=== PATIENT | male | born 1955 | race Caucasian/White ===

== ENCOUNTER 2022-08-10 09:45 | Emergency (ER) | payer MEDICARE, SELFPAY ==
[2022-08-10] VITALS (26 sets, daily range): BP systolic 103–141; BP diastolic 77–93; PULSE 51–64; RESP 16; TEMP 35.9; O2SAT 92–100; BMI 28.5
--- NOTE | 2022-08-10 10:37 | ED_ITS ---
HPI - General Adult General Time Seen by Provider: 10:38 Date Seen: 08/10/22 Chief complaint: Anxiety Stated complaint: Chest discomfort Time Seen by Provider: 08/10/22 10:35 Source: patient and RN notes reviewed Mode of arrival: ambulatory Limitations: no limitations History of Present Illness HPI narrative: This 66-year-old gentleman is coming in with concern of chest heaviness that has been intermittent but recurrent over the last few days. He was up eating breakfast this morning, it was coming across his whole anterior chest intermittently for about an hour. This was about an hour prior to his arrival. He notes he did go to the and did do about an hour on a bicycle without any symptoms. He feels like it may come on with more stressed. He had a stressful phone conversation last night. He woke up this morning just generally did not feel well. He has maybe had a bit more indigestion at times but not noting any reflux symptoms. No nausea or vomiting. He has had no fevers or chills, no associated cough or cold symptoms. He has never been diagnosed with any heart issues. He feels that he has had similar symptoms before and went to [facility] and in Urgent Care once. They told him his symptoms were anxiety. He has brothers who had heart arrhythmia issues. It does not sound like any one has had any coronary artery disease that he is aware of. He is a nonsmoker, no alcohol use, no illicit drug use. He states he has bipolar disorder and is on psychotropic medication for this. Related Data Home Medications Medication Instructions Recorded Confirmed lamotrigine 100 mg tablet mg 08/10/22 levothyroxine 175 mcg tablet mcg 08/10/22 quetiapine 400 mg tablet mg 08/10/22 quetiapine 50 mg tablet mg 08/10/22 Allergies Allergy/AdvReac Type Severity Reaction Status Date / Time No Known Drug Allergies Allergy Verified 08/10/22 09:59 Review of Systems Status of ROS: Reports: 10 or more systems reviewed and unremarkable except as noted in History and below PFSH PFS Social History Smoking Status: Never smoker How often do you have a drink containing alcohol: never How often do you have six or more drinks on one occasion: Never AUDIT-C Alcohol total score: 0 Non-prescribed substance use: denies use Exam Const: Vital Signs, click to edit/add: Vital Signs - 24 hr 08/10/22 09:55 08/10/22 10:50 08/10/22 09:58 Temperature 96.6 F L Pulse Rate 60 Pulse Rate [Left P ulse Oximeter] 62 Respiratory Rate 16 Blood Pressure Blood Pressure [Le ft Upper Arm] 141/90 H Pulse Oximetry 100 99 99 Oxygen Delivery Me thod Room Air 08/10/22 09:59 08/10/22 10:00 08/10/22 10:01 Temperature Pulse Rate 59 L 56 L 60 Pulse Rate [Left P ulse Oximeter] Respiratory Rate Blood Pressure 141/90 H 134/93 H Blood Pressure [Le ft Upper Arm] Pulse Oximetry 100 99 99 Oxygen Delivery Me thod 08/10/22 10:30 08/10/22 10:31 08/10/22 11:00 Temperature Pulse Rate 61 58 L 56 L Pulse Rate [Left P ulse Oximeter] Respiratory Rate Blood Pressure 127/87 Blood Pressure [Le ft Upper Arm] Pulse Oximetry 96 96 98 Oxygen Delivery Me thod 08/10/22 11:02 08/10/22 11:03 08/10/22 11:30 Temperature Pulse Rate 63 63 58 L Pulse Rate [Left P ulse Oximeter] Respiratory Rate Blood Pressure 103/77 Blood Pressure [Le ft Upper Arm] Pulse Oximetry 97 96 97 Oxygen Delivery Me thod 08/10/22 11:32 08/10/22 11:33 08/10/22 12:00 Temperature Pulse Rate 52 L 59 L 51 L Pulse Rate [Left P ulse Oximeter] Respiratory Rate Blood Pressure 127/79 Blood Pressure [Le ft Upper Arm] Pulse Oximetry 97 96 98 Oxygen Delivery Me thod 08/10/22 12:01 08/10/22 12:02 08/10/22 12:30 Temperature Pulse Rate 54 L 56 L 54 L Pulse Rate [Left P ulse Oximeter] Respiratory Rate Blood Pressure 125/78 Blood Pressure [Le ft Upper Arm] Pulse Oximetry 96 97 98 Oxygen Delivery Me thod 08/10/22 12:32 08/10/22 13:02 08/10/22 13:17 Temperature Pulse Rate 55 L 56 L Pulse Rate [Left P ulse Oximeter] Respiratory Rate Blood Pressure 123/82 128/86 Blood Pressure [Le ft Upper Arm] Pulse Oximetry 96 94 Oxygen Delivery Me thod 08/10/22 13:30 08/10/22 13:31 Temperature Pulse Rate 60 64 Pulse Rate [Left P ulse Oximeter] Respiratory Rate Blood Pressure 141/82 H Blood Pressure [Le ft Upper Arm] Pulse Oximetry 99 92 Oxygen Delivery Me thod Documenting provider has reviewed patient's vital signs: yes Common normals: no apparent distress, average body habitus, oriented x3, no limitations, healthy appearing and alert General appearance: cooperative, comfortable, well kempt and well developed HENMT: Common normals: normocephalic, head/scalp atraumatic and hearing grossly normal bilaterally Head and scalp: normocephalic and atraumatic Eye: Common normals: PERRL, EOMs intact bilaterally, conjunctivae normal and no scleral icterus Conjunctiva: conjunctiva(e) normal Pupil: PERRL Neck & C-Spine: Common normals: full ROM, no lymphadenopathy, supple, no meningeal signs, no JVD and thyroid normal Thyroid: thyroid normal Chest: Common normals: inspection of chest normal and palpation of chest normal Resp: Common normals: normal respiratory effort, no retractions, no use of accessory muscles and clear to auscultation bilaterally Auscultation: clear to auscultation bilaterally Cardio: Common normals: no JVD, regular rate, regular rhythm, S1 normal heart sound, S2 normal heart sound, no gallops, no clicks and no murmurs Rate: regular rate Rhythm: regular rhythm Heart sounds: S1 normal and S2 normal GI: Common normals: Normal to inspection, nondistended, normoactive bowel sounds present, soft to palpation, non-tender, no hepatosplenomegaly and no masses Palpation: soft and no hepatosplenomegaly Extremity: Other: Ambulatory in the ED of his own accord, did watch him walk into room 8 when he was arriving here. No lower extremity edema, does not seem to have any calf tenderness. Neuro: Common normals: oriented x3 Sensorium/orientation: alert Meningeal signs: no meningeal signs Psych: Appearance: well kempt Course Course Hospital Course: His initial EKG on arrival is looking reassuring, he will be maintained on cardiac monitoring and pulse oximetry. We will do full complement of blood work, obtain portable chest x-ray. Does not sound like there is any concern for any infectious etiology at this time. Otherwise, arrhythmia, coronary artery disease, GI a symptomatology, possible thromboembolic disease will be considered. We will guide therapy accordingly. Reevaluation(s) Reevaluation #1: Patient is aware that he will be getting a repeat troponin around 1:00 p.m., if normal likely discharge to home. Time: 12:25 Reevaluation #2: 2nd troponin and EKG are normal. No change in the troponins at all. We will discharge patient for further outpatient follow-up. Time: 14:03 Vital Signs Vital signs: Initial Vital Signs Temperature 96.6 F L 08/10/22 09:55 Temperature Source Temporal Artery Scan 08/10/22 09:55 Pulse Rate 62 08/10/22 09:55 Pulse Rhythm 08/10/22 09:55 Respiratory Rate 16 08/10/22 09:55 Blood Pressure 141/90 H 08/10/22 09:55 Blood Pressure Mean 107 08/10/22 09:55 Blood Pressure Position Sitting 08/10/22 09:55 Pulse Oximetry 100 08/10/22 09:55 Oxygen Delivery Method 08/10/22 09:55 Vital Signs Temperature 96.6 F L 08/10/22 09:55 Pulse Rate 62 08/10/22 09:55 Respiratory Rate 16 08/10/22 09:55 Blood Pressure 141/90 H 08/10/22 09:55 Pulse Oximetry 100 08/10/22 09:55 Oxygen Delivery Method 08/10/22 09:55 Temperature 96.6 F L 08/10/22 09:55 Pulse Rate 64 08/10/22 13:31 Respiratory Rate 16 08/10/22 09:55 Blood Pressure 141/82 H 08/10/22 13:31 Pulse Oximetry 92 08/10/22 13:31 Oxygen Delivery Method 08/10/22 09:55 Medical Decision Making Lab Data Lab results reviewed: Yes I reviewed the patient's lab results Labs: Lab Results 08/10/22 08/10/22 08/10/22 Range/Units 10:51 11:00 11:00 WBC 3.71 L (4.50-11.00) K/uL RBC 5.15 (4.30-5.90) m/uL Hgb 16.0 (13.5-17.5) gm/dL Hct 47.8 (37.0-53.0) % MCV 93 (80-100) fL MCH 31 (26-34) pg MCHC 34 (32-36) gm/dL RDW Coeff of Raúl 12.3 (11.5-15.5) % Plt Count 176 (140-440) K/uL Neut % (Auto) 63.6 (42.0-72.0) % Lymph % (Auto) 26.1 (20-44) % Mason % (Auto) 7.3 (0.0-11.0) % Eos % (Auto) 2.2 (0.0-7.0) % Baso % (Auto) 0.5 (0.0-3.0) % Neut # (Auto) 2.40 (1.7-7.0) K/uL Lymph # (Auto) 1.00 (0.90-2.90) K/uL Mason # (Auto) 0.30 (0.00-0.90) K/UL Eos # (Auto) 0.10 (0.00-0.50) K/uL Baso # (Auto) 0.00 (0.00-0.30) K/uL D-Dimer Quant (PE/DVT) < 0.27 (0.00-0.50) ug/ml Sodium (135-149) mmol/L Potassium (3.6-5.1) mmol/L Chloride (96-114) mmol/L Carbon Dioxide (20-32) mmol/L BUN (7-30) mg/dL Creatinine (0.5-1.5) mg/dL Estimated Creat Clear Estimated GFR ml/min Glucose (60-115) mg/dL Calcium (8.4-10.6) mg/dL Total Bilirubin (0.1-1.5) mg/dL AST (12-35) U/L ALT (4-50) U/L Alkaline Phosphatase (40-150) U/L NT-Pro-B Natriuret Pep pg/mL Total Protein (6.0-8.3) g/dL Albumin (3.3-5.0) g/dL Lipase (23-300) U/L POC Troponin I 0.00 L (0.01-0.04) ng/ml 08/10/22 08/10/22 Range/Units 11:00 13:00 WBC (4.50-11.00) K/uL RBC (4.30-5.90) m/uL Hgb (13.5-17.5) gm/dL Hct (37.0-53.0) % MCV (80-100) fL MCH (26-34) pg MCHC (32-36) gm/dL RDW Coeff of Raúl (11.5-15.5) % Plt Count (140-440) K/uL Neut % (Auto) (42.0-72.0) % Lymph % (Auto) (20-44) % Mason % (Auto) (0.0-11.0) % Eos % (Auto) (0.0-7.0) % Baso % (Auto) (0.0-3.0) % Neut # (Auto) (1.7-7.0) K/uL Lymph # (Auto) (0.90-2.90) K/uL Mason # (Auto) (0.00-0.90) K/UL Eos # (Auto) (0.00-0.50) K/uL Baso # (Auto) (0.00-0.30) K/uL D-Dimer Quant (PE/DVT) (0.00-0.50) ug/ml Sodium 141 (135-149) mmol/L Potassium 4.3 (3.6-5.1) mmol/L Chloride 112 (96-114) mmol/L Carbon Dioxide 23 (20-32) mmol/L BUN 20 (7-30) mg/dL Creatinine 1.1 (0.5-1.5) mg/dL Estimated Creat Clear 83.25 Estimated GFR 74 ml/min Glucose 117 H (60-115) mg/dL Calcium 9.4 (8.4-10.6) mg/dL Total Bilirubin 0.7 (0.1-1.5) mg/dL AST 20 (12-35) U/L ALT 18 (4-50) U/L Alkaline Phosphatase 50 (40-150) U/L NT-Pro-B Natriuret Pep 21 pg/mL Total Protein 6.7 (6.0-8.3) g/dL Albumin 4.2 (3.3-5.0) g/dL Lipase 78 (23-300) U/L POC Troponin I 0.00 L (0.01-0.04) ng/ml Imaging Data Chest x-ray: Attestation: I have reviewed the pertinent imaging results. My impression: No acute cardiopulmonary pathology on my preliminary review. Radiologist's impression: Patient: JAIME HERNÁNDEZ Facility:?[facility] Patient ID:?[id number] Site Patient ID:?[id number]. Site :?[id number] Study:?XRay Chest PORTABLE-08/10/2022 11:19:04 AM Ordering Physician:?Elliott Nuñez Final Report: INDICATION: CHEST DISCOMFORT TECHNIQUE: Chest 1 view COMPARISON: 08/20/2014 FINDINGS: Cardiovascular and mediastinum: Cardiac silhouette is upper limits of normal. There is tortuosity of the aorta. Lungs and pleural spaces: Lungs are clear. No sign of infiltrate or mass. No sign of pleural effusion. No pneumothorax. Bones and soft tissues: No significant findings. IMPRESSION: No acute findings. Dictated by Prashant Lewis MD @ 08/10/2022 11:27:24 AM (Electronic Signature) ECG Data Attestation: I personally reviewed and interpreted this ECG as follows: (Sinus bradycardia, 58 beats per minute. No acute ischemic concerns. QT corrected 404 milliseconds.) Interpretation: Followup EKG timed 1305 shows sinus bradycardia 50 beats per minute. No ischemia. Critical Care Time Critical Care Time Critical Care Time: No Discharge Plan Discharge Clinical Impression: Chest tightness Patient Disposition: Home, Self-Care Condition: Stable Instructions: Chest Pain (ED), Noncardiac Chest Pain (ED) Additional Instructions: Recommend follow up in clinic as soon as possible, discuss with your primary care provider about having a cardiac stress test scheduled. Unless you have been told not to, would not be inappropriate to take an 81 mg aspirin daily until you have completed a stress test. In the meantime, if you have increasing chest symptoms, notice any heart irregularity in the rhythm or have other concerning symptoms, return to the ER for further evaluation. Activity Level: Activity as Tolerated Prescriptions: No Action levothyroxine 175 mcg tablet lamotrigine 100 mg tablet quetiapine 50 mg tablet quetiapine 400 mg tablet Stand Alone Forms: [employer] Info Instructions
--- NOTE | 2022-08-10 10:50 | CRLHL7_ITS ---
For Patients: As a result of the Cures Act, medical imaging exams and procedure reports are released immediately into your electronic medical record. You may view this report before your referring provider. If you have questions, please contact your health care provider. INDICATION: CHEST DISCOMFORT TECHNIQUE: Chest 1 view COMPARISON: 08/20/2014 FINDINGS: Cardiovascular and mediastinum: Cardiac silhouette is upper limits of normal. There is tortuosity of the aorta. Lungs and pleural spaces: Lungs are clear. No sign of infiltrate or mass. No sign of pleural effusion. No pneumothorax. Bones and soft tissues: No significant findings. IMPRESSION: No acute findings. Dictated by Prashant Lewis MD @ 08/10/2022 11:27:24 AM (Electronically Signed)
[2022-08-10 11:12] LABS: Basophils Percent Auto 0.5 % (0.0-3.0); Eosinophils Percent Auto 2.2 % (0.0-7.0); Hematocrit 47.8 % (37.0-53.0); Immature Granulocytes Pct Auto 0.3 %; Lymphocytes Percent Auto 26.1 % (20-44); Mean Corpuscular HGB Conc 34 gm/dL (32-36); Mean Corpuscular Hemoglobin 31 pg (26-34); Mean Corpuscular Volume 93 fL (80-100); Monocytes Percent Auto 7.3 % (0.0-11.0); Neutrophils Percent Auto 63.6 % (42.0-72.0); Platelet Count* 176 K/uL (140-440); RDW Coefficient of Variation % 12.3 % (11.5-15.5); Red Blood Count 5.15 m/uL (4.30-5.90); White Blood Count* 3.71 K/uL (4.50-11.00)
[2022-08-10 11:24] LABS: Albumin* 4.2 g/dL (3.3-5.0); Chloride* 112 mmol/L (96-114); Sodium* 141 mmol/L (135-149)
[2022-08-10 11:25] LABS: Potassium* 4.3 mmol/L (3.6-5.1); Slide Review Reflex No
[2022-08-10 11:27] LABS: Alkaline Phosphatase* 50 U/L (40-150); Aspartate Amino Transferase* 20 U/L (12-35); Bilirubin Total* 0.7 mg/dL (0.1-1.5); Blood Urea Nitrogen* 20 mg/dL (7-30); Carbon Dioxide* 23 mmol/L (20-32); Creatinine* 1.1 mg/dL (0.5-1.5); Est. Creatinine Clearance* 83.25; Estimated Glomerular Filt Rate 74 ml/min; Lipase* 78 U/L (23-300); Total Protein* 6.7 g/dL (6.0-8.3)
[2022-08-10 11:28] LABS: Alanine Aminotransferase* 18 U/L (4-50); Calcium* 9.4 mg/dL (8.4-10.6); Glucose* 117 mg/dL (60-115)
[2022-08-10 11:33] LABS: D Dimer Quantitative* < 0.27 ug/ml (0.00-0.50)
[2022-08-10 11:40] LABS: NT Pro B Type NatriureticPept* 21 pg/mL
== END 2022-08-10 14:15 | disposition home or self-care (01) ==
PROVIDERS: Emergency Provider Family Medicine; PCP Family Medicine
DX: R07.89 Other chest pain (principal)
CPT/HCPCS: 36415; 71045; 80053; 83690; 83880; 84484; 85025; 85379; 93005; 94761; 99285

== ENCOUNTER 2023-10-29 22:09 | Emergency (ER) | payer MEDICARE, SELFPAY ==
[2023-10-29 22:14] VITALS: BP 164/88; PULSE 62; RESP 18; TEMP 36.1; O2SAT 100; BMI 29.1
--- NOTE | 2023-10-29 22:22 | ED.GENADULT ---
HPI - General Adult General Date Seen: 10/29/23 Chief complaint: Ear/Nose/Throat Problem Stated complaint: rubber end of hearing aid stuck in R ear Time Seen by Provider: 10/29/23 22:17 Source: patient Mode of arrival: ambulatory Limitations: no limitations History of Present Illness HPI narrative: Patient is a 68-year-old male who wears hearing aids, he has the rubber gasket of his right hearing aid stuck in his right ear. No other complaints. Related Data Home Medications Medication Instructions Recorded Confirmed lamotrigine 100 mg tablet mg 08/10/22 levothyroxine 175 mcg tablet mcg 08/10/22 quetiapine 400 mg tablet mg 08/10/22 quetiapine 50 mg tablet mg 08/10/22 Allergies Allergy/AdvReac Type Severity Reaction Status Date / Time No Known Drug Allergies Allergy Verified 08/10/22 09:59 PFSH PFSH Social History Smoking Status: Never smoker How often do you have a drink containing alcohol: never How often do you have six or more drinks on one occasion: Never AUDIT-C Alcohol total score: 0 Non-prescribed substance use: denies use Exam Narrative: Exam Narrative: Foreign body right ear canal Const: Vital Signs, click to edit/add: Vital Signs - 24 hr 10/29/23 22:14 Temperature 97.0 F L Pulse Rate [Left P ulse Oximeter] 62 Respiratory Rate 18 Blood Pressure [Ri ght Upper Arm] 164/88 H Pulse Oximetry 100 Oxygen Delivery Me thod Room Air Course Course ED Course: Rubber foreign body was removed from the right external auditory canal using alligators. Exam after removal shows a clear canal, normal TM. Vital Signs Vital signs: Initial Vital Signs Temperature 97.0 F L 10/29/23 22:14 Temperature Source Temporal Artery Scan 10/29/23 22:14 Pulse Rate 62 10/29/23 22:14 Pulse Rhythm Regular 10/29/23 22:14 Respiratory Rate 18 10/29/23 22:14 Blood Pressure 164/88 H 10/29/23 22:14 Blood Pressure Mean 113 H 10/29/23 22:14 Blood Pressure Position Sitting 10/29/23 22:14 Pulse Oximetry 100 10/29/23 22:14 Oxygen Delivery Method Room Air 10/29/23 22:14 Vital Signs Temperature 97.0 F L 10/29/23 22:14 Pulse Rate 62 10/29/23 22:14 Respiratory Rate 18 10/29/23 22:14 Blood Pressure 164/88 H 10/29/23 22:14 Pulse Oximetry 100 10/29/23 22:14 Oxygen Delivery Method Room Air 10/29/23 22:14 Temperature 97.0 F L 10/29/23 22:14 Pulse Rate 62 10/29/23 22:14 Respiratory Rate 18 10/29/23 22:14 Blood Pressure 164/88 H 10/29/23 22:14 Pulse Oximetry 100 10/29/23 22:14 Oxygen Delivery Method Room Air 10/29/23 22:14 Discharge Plan Discharge Clinical Impression: Acute foreign body of right ear canal Patient Disposition: Home, Self-Care Condition: Improved Instructions: Ear Foreign Body (ED) Prescriptions: No Action levothyroxine 175 mcg tablet lamotrigine 100 mg tablet quetiapine 50 mg tablet quetiapine 400 mg tablet Follow Up/Referrals: Jeffrey Jeronimo MD [Primary Care Provider] - Stand Alone [facility] Info Inst[facility]
== END 2023-10-29 22:28 | disposition home or self-care (01) ==
LOC: ED 22:27
PROVIDERS: Emergency Provider Emergency Medicine; PCP Family Medicine
DX: T16.1XXA Foreign body in right ear, initial encounter (principal)
CPT/HCPCS: 99282; 99283

== ENCOUNTER 2023-10-31 18:48 | Emergency (ER) | payer MEDICARE, SELFPAY ==
--- NOTE | 2023-10-31 18:52 | ED.GENADULT ---
HPI - General Adult General Date Seen: 10/31/23 Chief complaint: Ear/Nose/Throat Problem Stated complaint: Rubber piece of hearing aid stuck in L ear Time Seen by Provider: 10/31/23 18:50 History of Present Illness HPI narrative: Very pleasant 68-year-old gentleman presenting to the ER today because he has the rubbery ear canal piece from his hearing aid lodged in his left ear canal. It came off 2 days ago and he had to come to the ER to get it removed. He came off again today. The ear piece stuck in his ear canal. No pain. No other complaints. No trouble with his right ear. Related Data Home Medications Medication Instructions Recorded Confirmed lamotrigine 100 mg tablet mg 08/10/22 levothyroxine 175 mcg tablet mcg 08/10/22 quetiapine 400 mg tablet mg 08/10/22 quetiapine 50 mg tablet mg 08/10/22 Allergies Allergy/AdvReac Type Severity Reaction Status Date / Time No Known Drug Allergies Allergy Verified 08/10/22 09:59 PFSH PFSH Social History Smoking Status: Never smoker How often do you have a drink containing alcohol: never How often do you have six or more drinks on one occasion: Never AUDIT-C Alcohol total score: 0 Non-prescribed substance use: denies use Exam Narrative: Exam Narrative: Constitutional: Appears well-developed and well-nourished. Alert. Conversant. Non toxic. HENT: Head: Atraumatic. Right ear: Pinna, mastoid, canal, TM is normal. Small amount of cerumen in the canal. Left ear: Pinna, mastoid, auricle are normal. There is a black rubber foreign body-the ear piece from his hearing aid in the canal. I removed his gently using alligator forceps. The remainder of his canal and his TM are normal. No other foreign bodies. Neurological: Alert and oriented to person, place, and time. Normal strength. CN II-VII intact. No sensory deficit. GCS eye subscore is 4. GCS verbal subscore is 5. GCS motor subscore is 6. Normal coordination Skin: Skin is warm and dry. No rash noted. No pallor. Psychiatric: Normal mood. Normal affect. Const: Vital Signs, click to edit/add: Vital Signs - 24 hr 10/31/23 18:54 Temperature 97.1 F L Pulse Rate [Pulse Oximeter] 62 Respiratory Rate 18 Blood Pressure [Le ft Upper Arm] 159/100 H Pulse Oximetry 96 Oxygen Delivery Me thod Room Air Course Vital Signs Vital signs: Initial Vital Signs Temperature 97.1 F L 10/31/23 18:54 Temperature Source Temporal Artery Scan 10/31/23 18:54 Pulse Rate 62 10/31/23 18:54 Pulse Rhythm Regular 10/31/23 18:54 Respiratory Rate 18 10/31/23 18:54 Blood Pressure 159/100 H 10/31/23 18:54 Blood Pressure Mean 119 H 10/31/23 18:54 Blood Pressure Position Sitting 10/31/23 18:54 Pulse Oximetry 96 10/31/23 18:54 Oxygen Delivery Method Room Air 10/31/23 18:54 Vital Signs Temperature 97.1 F L 10/31/23 18:54 Pulse Rate 62 10/31/23 18:54 Respiratory Rate 18 10/31/23 18:54 Blood Pressure 159/100 H 10/31/23 18:54 Pulse Oximetry 96 10/31/23 18:54 Oxygen Delivery Method Room Air 10/31/23 18:54 Temperature 97.1 F L 10/31/23 18:54 Pulse Rate 62 10/31/23 18:54 Respiratory Rate 18 10/31/23 18:54 Blood Pressure 159/100 H 10/31/23 18:54 Pulse Oximetry 96 10/31/23 18:54 Oxygen Delivery Method Room Air 10/31/23 18:54 Medical Decision Making MDM Narrative Medical decision making narrative: Very pleasant 68-year-old gentleman who wears hearing aids returns to the ER today because he has the rubber piece from his left hearing aid stuff in his left ear canal again. He was gently removed using alligator forceps. No evidence for any other foreign bodies. No signs of TM perforation. No signs of otitis externa or other infection. Safe for discharge. He will follow-up with his machinist/machine builder to have his hearing aids refit. He is comfortable with plan for discharge. Discharge Plan Discharge Clinical Impression: Acute foreign body of left ear canal Patient Disposition: Home, Self-Care Condition: Stable Instructions: Ear Foreign Body (ED) Additional Instructions: Please follow-up with your machinist/machine builder as soon as possible to re-evaluate her hearing aids and have them refit If you have any concerns such as pain, drainage or bleeding from her ear, fever, change in hearing, please see your doctor or come back to the ER right away Prescriptions: No Action levothyroxine 175 mcg tablet lamotrigine 100 mg tablet quetiapine 50 mg tablet quetiapine 400 mg tablet Follow Up/Referrals: Jeffrey Jeronimo MD [Primary Care Provider] - Stand Alone Forms: [employer] Info Instructions
[2023-10-31 18:54] VITALS: BP 159/100; PULSE 62; RESP 18; TEMP 36.2; O2SAT 96; BMI 29.3
== END 2023-10-31 19:07 | disposition home or self-care (01) ==
LOC: ED 19:06
PROVIDERS: Emergency Provider Emergency Medicine; PCP Family Medicine
DX: T16.2XXA Foreign body in left ear, initial encounter (principal)
CPT/HCPCS: 69200; 99281; 99282

== ENCOUNTER 2024-09-25 14:53 | Emergency (ER) | payer MEDICARE, SELFPAY ==
--- OUTSIDE RECORDS SUMMARY | 2024-09-25 14:55 | XMS_ITS | Clinical Summary ---
Author Organization [facility] Address [address] [place] [address] Care Team Providers Care Platform Beater Name Role Phone Jeffrey Jeronimo Primary Care Provider [phone] Allergies No known active allergies Medications * This document contains information received from the source organization and may not represent a complete record from that organization. levothyroxine (SYNTHROID/LEVOTHR OID) 175 MCG tabletIndications: Other specified hypothyroidism Take 1 tablet (175 mcg) by mouth daily. 30 tablet 4 Active tacrolimus (PROTOPIC) 0.03 % external ointmentIndication s:Pressure injury of skin of buttock, unspecified injury stage, unspecified laterality Apply topically daily as needed (daily as needed on the affected area on the buttocks and groin). 60 g 4 Active triamcinolone (KENALOG) 0.1 % external creamIndications:P ressure injury of skin of buttock, unspecified injury stage, unspecified laterality Apply topically 2 times daily as needed for irritation. 30 g 4 Active buPROPion (WELLBUTRIN XL) 150 MG 24 hr tabletIndications: Bipolar 2 disorder, major depressive episode (H) Take 1 tablet (150 mg) by mouth daily. 30 tablet 4 Active cholecalciferol (VITAMIN D3) 125 mcg (5000 units) capsuleIndications :Vitamin D deficiency Take 1 capsule (125 mcg) by mouth daily. 30 capsule 4 Active melatonin 5 MG tabletIndications: Bipolar 2 disorder, major depressive episode (H) Take 1 tablet (5 mg) by mouth at bedtime. 30 tablet 4 Active pantoprazole (PROTONIX) 40 MG EC tabletIndications: Gastroesophageal reflux disease without esophagitis Take 1 tablet (40 mg) by mouth daily. 30 tablet 4 Active polyethylene glycol (MIRALAX) 17 GM/Dose powderIndications: Bipolar 2 disorder, major depressive episode (H) Take 17 g by mouth daily. 510 g 4 Active tamsulosin (FLOMAX) 0.4 MG capsuleIndications :Benign prostatic hyperplasia, unspecified whether lower urinary tract symptoms present Take 2 capsules (0.8 mg) by mouth daily. 60 capsule 4 Active QUEtiapine (SEROQUEL) 400 MG tabletIndications: Bipolar 2 disorder, major depressive episode (H) Take 1 tablet (400 mg) by mouth at bedtime. 30 tablet 4 Active Active Problems Problem Noted Date Diagnosed Date Bipolar 2 disorder, major depressive episode MDD (major depressive disorder) 04/21/2024 Bipolar I disorder, current or most recent episode depressed, with psychotic features 04/10/2024 BPH (benign prostatic hyperplasia) 04/10/2024 Urinary tract infection 04/10/2024 Hypothyroidism 04/10/2024 Gastroesophageal reflux disease without esophagi tis 04/10/2024 Sepsis due to urinary tract infection 04/10/2024 Stage 3a chronic kidney disease 04/10/2024 UTI (urinary tract infection) 04/10/2024 HECTOR (acute kidney injury) 04/10/2024 Insomnia due to other mental disorder (CODE) Severe depressed bipolar I d isorder without psychotic features 03/22/2024 Suicidal ideation 03/20/2024 Mood changes 03/20/2024 Bipolar disorder current episode depressed 03/19 Bipolar affective disorder, currently depressed, moderate 03/19/2024 Social History Tobacco Use Types Packs/Day Years Used Date Smoking Tobacco: Never Assessed PHQ-2 Answer Date Recorded PHQ-2 Score 2 03/20/2024 Adolescent Education Answer Date Record ed Getting School Help Needed Not on file 04/23 Food Insecurity Answer Date Recorded Within the past 12 months, d id you worry that your food would run out before you got money to buy more? No 05/05/2024 Within the past 12 months, d id the food you bought just not last and you didn t have money to get more? No 05/05/2024 Housing Stability Answer Date Recorded Do you have housing? (Emily benitez is defined as stable permanent housing and does not include staying ouside in a car, in a tent, in an abandoned building, in an overnight chcf, or couch-surfing.) Yes 05/05/2024 Are you worried about losing your housing? No 05/05/2024 Financial Resource Strain Answer Date R ecorded Within the past 12 months, h ave you or your family members you live with been unable to get utilities (heat, electricity) when it was really needed? No 05/05/2024 Transportation Needs Answer Date Record ed Within the past 12 months, h as lack of transportation kept you from medical appointments, getting your medicines, non-medical meetings or appointments, work, or from getting things that you need? No 05/05/2024 Interpersonal Safety Answer Date Record ed Do you feel physically and e motionally safe where you currently live? No 04/21/2024 Within the past 12 months, h ave you been hit, slapped, kicked or otherwise physically hurt by someone? No 04/21/2024 Within the past 12 months, h ave you been humiliated or emotionally abused in other ways by your partner or ex-partner? No 04/21/2024 Sex and Gender Information Value Date Recorded Sex Assigned at Not on file Legal Sex Male 4:11 PM CDT Gender Identity Not on file Sexual Orientation Not on file Last Filed Vital Signs Vital Sign Reading Time Taken Comments Blood Pressure 112/74 05/15/2024 8:45 AM CDT Pulse 121 05/15/2024 8:45 AM CDT Temperature 36.4 C (97.5 F) 05/15/2024 8:45 AM CDT Respiratory Rate 20 05/12/2024 11:3 3 AM CDT Oxygen Saturation 99% 05/15/2024 8:45 AM CDT Inhaled Oxygen Concentration - - Weight 102.4 kg (225 lb 12.8 oz) 05/15/2024 8:45 AM CDT Height 195.6 cm (6' 5) 03/20/2024 6:46 PM CDT Body Mass Index 26.78 03/20/2024 6:46 PM CDT Plan of Treatment Health Maintenance Due Date Last Done Comments ADVANCE CARE PLANNING 1955 ANNUAL REVIEW OF HM ORDERS 1955 CT COLONOGRAPHY 1955 FLEX SIG 1955 MICROALBUMIN 1955 sDNA (Cologuard) 1955 HEPATITIS C SCREENING 10/12/1973 DTAP/TDAP/TD IMMUNIZATION (1 - Tdap) 10/12/1980 Pneumococcal Vaccine: 50+ Years (1 of 1 - PCV) 10/12/2005 ZOSTER IMMUNIZATION (1 of 2) 10/12/2005 FIT 08/25/2017 08/25/2016 FALL RISK ASSESSMENT 10/12/2020 MEDICARE ANNUAL WELLNESS VISIT 10/12/2020 COVID-19 Vaccine ( season) 2024 11/28/2021, 05/10/2021, 11/08/2020, Additional history exists INFLUENZA VACCINE (#1) 2024 , 04/29/2022, 06/05/2021, Additional history exists TSH W/FREE T4 REFLEX 03/19/2025 03/19/2024 LIPID 04/22/2025 04/22/2024 HEMOGLOBIN 05/07/2025 05/07/2024, 04/01, 04/11/2024, Additional history exists BMP 05/09/2025 05/09/2024, 01/2024, 04/17/2024, Additional history exists COLONOSCOPY 2026 2016 COLORECTAL CANCER SCREENING 2026 GLUCOSE 05/09/2027 05/09/2024, 100 01/2024, 04/17/2024, Additional history exists RSV VACCINE (1 - 1-dose 75+ series) 10/12/2030 URINALYSIS Completed 05/07/2024, 04/01, 03/21/2024, Additional history exists HPV IMMUNIZATION Aged Out No longer e ligible based on patient's age to complete this topic MENINGITIS IMMUNIZATION Aged Out No l onger eligible based on patient's age to complete this topic Procedures Procedure Name Priority Date/Time Associated Diagnosis Comments BASIC METABOLIC PANEL Routine 05/09/2024 7:44 AM CDT ROUTINE UA WITH MICROSCOPIC REFLEX TO CULTURE Routine 05/07/2024 9:52 PM CDT CBC WITH PLATELETS AND DIFFERENTIAL Routine 05/07/2024 11:25 AM CDT LIPID PROFILE Routine 04/22/2024 7:57 AM CDT TSH WITH FREE T4 REFLEX STAT 03/19/2024 8:12 PM CDT from Last 3 Months or Most Recently Relevant to Health Maintenance Results * (ABNORMAL) Basic metabolic panel (05/09/2024 7:44 AM CDT) Sodium 141 135 - 145 mmol/L 05/09/2024 9:26 AM CDT [facility] Potassium 4.2 3.4 - 5.3 mmol/L 05/09/2024 9:26 AM CDT [facility] Chloride 111(H) 98 - 107 mmol/L 05/09/2024 9:26 AM CDT [facility] Carbon Dioxide (CO2) 19(L) 22 - 29 mmol/L 05/09/2024 9:26 AM CDT [facility] Anion Gap 11 7 - 15 mmol/L 05/09/2024 9:26 AM CDT [facility] Urea Nitrogen 21.5 8.0 - 23.0 mg/dL 05/09/2024 9:26 AM CDT [facility] Creatinine 1.19(H) 0.67 - 1.17 mg/dL 05/09/2024 9:26 AM CDT [facility] GFR Estimate 67 >60 mL/min/1.7 3m2 05/09/2024 9:26 AM CDT [facility] Comment:eGFR calculated us2020 CKD-EPI equation. Calcium 9.3 8.8 - 10.4 mg/dL 05/09/2024 9:26 AM CDT [facility] Comment:Reference intervals for this test were updated on 02/14/2024 to reflect our healthy population more accurately. There may be differences in the flagging of prior results with similar values performed with this method. Those prior results can be interpreted in the context of the updated reference intervals. Glucose 84 70 - 99 mg/dL 05/09/2024 9:26 AM CDT [facility] Blood BLOOD SPECIMEN / Unknown Venipuncture / Unknown 05/09/2024 7:44 AM CDT 05/09/2024 8:48 AM CDT us Jolie Butler MD LAB - BLOOD ORDERABLES Final Res ult [facility] [address] [place] [address] * (ABNORMAL) UA with Microscopic reflex to Culture (05/07/2024 9:52 PM CDT) Color Urine Light Yellow Colorless, Straw, Light Yellow, Yellow 05/07/2024 10:30 PM CDT [facility] Appearance Urine Clear Clear 05/07/20 10:30 PM CDT [facility] Glucose Urine Negative Negative mg/dL 05/07/2024 10:30 PM CDT [facility] Bilirubin Urine Negative Negative 10:30 PM CDT [facility] Ketones Urine Negative Negative mg/dL 05/07/2024 10:30 PM CDT [facility] Specific Hedrick Urine 1.013 1.003 - 1.035 05/07/2024 10:30 PM CDT [facility] Blood Urine Small(A) Negative 05/07/2024 10:30 PM CDT [facility] pH Urine 6.0 5.0 - 7.0 05/07/2024 10:30 PM CDT [facility] Protein Albumin Urine Negative Negative mg/dL 05/07/2024 10:30 PM CDT [facility] Urobilinogen Urine Normal Normal, 2.0 mg/dL 05/07/2024 10:30 PM CDT [facility] Nitrite Urine Negative Negative 05/07/2024 10:30 PM CDT [facility] Leukocyte Esterase Urine Negative Negative 05/07/2024 10:30 PM CDT [facility] Bacteria Urine Few(A) None Seen /HPF 05/07/2024 10:30 PM CDT [facility] Mucus Urine Present(A) None Seen /LPF 05/07/2024 10:30 PM CDT [facility] RBC Urine 11(H) <=2 /HPF 05/07/2024 10:30 PM CDT [facility] WBC Urine 2 <=5 /HPF 05/07/2024 10:30 PM CDT [facility] Urine URINE SPECIMEN FROM URINARY CONDUIT / Unknown Non-blood Collection / Unknown 05/07/2024 9:52 PM CDT 05/07/2024 10:02 PM CDT Narrative [facility] - 05/07/2024 10:30 PM CDT Urine Culture not indicated us Jolie Butler MD LAB - URINE ORDERABLES Final Res ult [facility] [address] [place] [address] * CBC with platelets and differential (05/07/2024 11:25 AM CDT) WBC Count 6.4 4.0 - 11.0 10e3/uL 05/07/2024 11:49 AM CDT [facility] RBC Count 4.68 4.40 - 5.90 10e6/uL 05/07/2024 11:49 AM CDT [facility] Hemoglobin 14.5 13.3 - 17.7 g/dL 05/07/2024 11:49 AM CDT [facility] Hematocrit 42.6 40.0 - 53.0 % 05/07/2024 11:49 AM CDT [facility] MCV 91 78 - 100 fL 05/07/2024 11:49 AM CDT [facility] MCH 31.0 26.5 - 33.0 pg 05/07/2024 11:49 AM CDT [facility] MCHC 34.0 31.5 - 36.5 g/dL 05/07/2024 11:49 AM CDT [facility] RDW 12.7 10.0 - 15.0 % 05/07/2024 11:49 AM CDT [facility] Platelet Count 246 150 - 450 10e3/uL 05/07/2024 11:49 AM CDT [facility] % Neutrophils 67 % 05/07/2024 11:49 AM CDT [facility] % Lymphocytes 21 % 05/07/2024 11:49 AM CDT [facility] % Monocytes 9 % 05/07/2024 11:49 AM CDT [facility] % Eosinophils 3 % 05/07/2024 11:49 AM CDT [facility] % Basophils 1 % 05/07/2024 11:49 AM CDT [facility] % Immature Granulocytes 1 % 05/07/2024 11:49 AM CDT [facility] NRBCs per 100 WBC 0 <1 /100 024 11:49 AM CDT [facility] Absolute Neutrophils 4.3 1.6 - 8.3 10e3/uL 05/07/2024 11:49 AM CDT [facility] Absolute Lymphocytes 1.3 0.8 - 5.3 10e3/uL 05/07/2024 11:49 AM CDT [facility] Absolute Monocytes 0.6 0.0 - 1.3 10e3/uL 05/07/2024 11:49 AM CDT [facility] Absolute Eosinophils 0.2 0.0 - 0.7 10e3/uL 05/07/2024 11:49 AM CDT [facility] Absolute Basophils 0.0 0.0 - 0.2 10e3/uL 05/07/2024 11:49 AM CDT [facility] Absolute Immature Granulocytes 0.0 <=0.4 10e3/uL 05/07/2024 11:49 AM CDT [facility] Absolute NRBCs 0.0 10e3/uL 05/07/2024 11:49 AM CDT [facility] Blood BLOOD SPECIMEN / Unknown Venipuncture / Unknown 05/07/2024 11:25 AM CDT 05/07/2024 11:42 AM CDT us Jolie Butler MD LAB - BLOOD ORDERABLES Final Res ult [facility] [address] [place] [address], [facility] * (ABNORMAL) Lipid panel (04/22/2024 7:57 AM CDT) Cholesterol 132 <200 mg/dL 04/22/2024 8:40 AM CDT [facility] Triglycerides 91 <150 mg/dL 04/22/2024 8:40 AM CDT [facility] Direct Measure HDL 30(L) >=40 mg/dL 09/22/ 2024 8:40 AM CDT [facility] LDL Cholesterol Calculated 84 <100 mg/dL 04/22/2024 8:40 AM CDT [facility] Non HDL Cholesterol 102 <130 mg/dL 04/22/2024 8:40 AM CDT [facility] Blood BLOOD SPECIMEN / Unknown Venipuncture / Unknown 04/22/2024 7:57 AM CDT 04/22/2024 8:18 AM CDT Narrative [facility] - 04/22/2024 8:40 AM CDT Cholesterol Desirable: < 200 mg/dL Borderline High: 200 - 239 mg/dL High: >= 240 mg/dL Triglycerides Normal: < 150 mg/dL Borderline High: 150 - 199 mg/dL High: 200-499 mg/dL Very High: >= 500 mg/dL Direct Measure HDL Female: >= 50 mg/dL Male: >= 40 mg/dL LDL Cholesterol Desirable: < 100 mg/dL Above Desirable: 100 - 129 mg/dL Borderline High: 130 - 159 mg/dL High: 160 - 189 mg/dL Very High: >= 190 mg/dL Non HDL Cholesterol Desirable: < 130 mg/dL Above Desirable: 130 - 159 mg/dL Borderline High: 160 - 189 mg/dL High: 190 - 219 mg/dL Very High: >= 220 mg/dL us Jolie Butler MD LAB - BLOOD ORDERABLES Final Res ult UR LABORATORY [facility] [address] [place] [id number] * TSH with free T4 reflex (03/19/2024 8:12 PM CDT) TSH 1.18 0.30 - 4.20 uIU/mL 03/19/2024 8:51 PM CDT LABORATORY Blood STRUCTURE OF RIGHT UPPER LIMB / Unknown Venipuncture / Unknown 03/19/2024 8:12 PM CDT 03/19/2024 8:16 PM CDT us Faustina Middleton APRN [employer] LAB - BLOOD ORDERABLES Fi nal Result LABORATORY [facility] [address], [address] [place] [address], [place] [phone] from Last 3 Months or Most Recently Relevant to Health Maintenance Insurance [employer] MEDICARE ADVANTAGE [employer] MEDICARE ADVANTAGE [facility] MEDICARE REPLMT Advance Directives For more information, please contact: [phone] * Full Code (Latest Code Status on File) Date Activated Date Inactivated Comments 04/21/2024 11:09 AM 05/15/2024 4:41 PM All basic and advanced life-sustaining interventions are performed as appropriate while on inpatient psych Question Answer Comments Code status determined by: Other (please marielena valdez) * Full Code Date Activated Date Inactivated Comments 04/15/2024 7:01 AM 04/21/2024 10:55 AM All basic a nd advanced life-sustaining interventions are performed as appropriate Question Answer Comments Code status determined by: Discussion with patie nt/ legal decision maker * Full Code Date Activated Date Inactivated Comments 04/10/2024 10:55 PM 04/15/2024 7:01 AM All basic a nd advanced life-sustaining interventions are performed as appropriate Question Answer Comments Code status determined by: Unable to det ermine; FULL CODE until documents or legal decision maker available * Full Code Date Activated Date Inactivated Comments 04/10/2024 10:54 PM 04/10/2024 10:55 PM All basic and advanced life-sustaining interventions are performed as appropriate Question Answer Comments Code status determined by: Discussion with patie nt/ legal decision maker * Full Code Date Activated Date Inactivated Comments 03/23/2024 12:26 PM 04/10/2024 10:48 PM All basic and advanced life-sustaining interventions are performed as appropriate Question Answer Comments Code status determined by: Discussion with patie nt/ legal decision maker Care Teams Platform Beater Relationship Specialty Start Date End Date Votel, Jeffrey LE: [phone] [address] [place] [address] PCP - General Family Medicine 03/19/24
--- OUTSIDE RECORDS SUMMARY | 2024-09-25 14:55 | XMS_ITS | Encounter Summary ---
Author Organization [facility] Address [address] [place] [address]. [place] [address] Care Team Providers Care Distribution Lead Name Role Phone Phani Jeffrey El Primary Care Provider [phone] Reason for Visit * Reason Onset Date Comments MH/CD Inpatient 04/18/2024 Encounter Details Date Type Department Care Team ([facility] Contact Info) Description 04/18/2024 Telephone [facility] Behavioral Health Intake [address] [place] [id number] Generic, Behavioral Intake, MD MH/CD Inpatient Social History Tobacco Use Types Packs/Day Years Used Date Smoking Tobacco: Never Assessed PHQ-2 Answer Date Recorded PHQ-2 Score 2 03/20/2024 Adolescent Education Answer Date Record ed Getting School Help Needed Not on file 04/23 Food Insecurity Answer Date Recorded Within the past 12 months, d id you worry that your food would run out before you got money to buy more? No 04/13/2024 Within the past 12 months, d id the food you bought just not last and you didn t have money to get more? No 04/13/2024 Housing Stability Answer Date Recorded Do you have housing? (Housin g is defined as stable permanent housing and does not include staying ouside in a car, in a tent, in an abandoned building, in an overnight residential, or couch-surfing.) Yes 04/13/2024 Are you worried about losing your housing? Yes 04/13/2024 Financial Resource Strain Answer Date R ecorded Within the past 12 months, h ave you or your family members you live with been unable to get utilities (heat, electricity) when it was really needed? No 04/13/2024 Transportation Needs Answer Date Record ed Within the past 12 months, h as lack of transportation kept you from medical appointments, getting your medicines, non-medical meetings or appointments, work, or from getting things that you need? No 04/13/2024 Interpersonal Safety Answer Date Record ed Do [...] on file Sexual Orientation Not on file documented as of this encounter Miscellaneous Notes * Telephone Encounter - Candice Moe - 04/18/2024 7:42 PM CDT R: No appropriate bed at [facility]. Pt remains on the worklist. documented in this encounter Plan of Treatment Not on file documented as of this encounter Visit Diagnoses Not on filedocumented in this encounter Additional Health Concerns Assessment Noted Time PHQ-9 Depression Total Score: 17 03/28/ 024 1:40 PM CDT documented as of this encounter Care Teams Distribution Lead Relationship Specialty Start Date End Date NicteJeffrey iqbal [address] [place] [address] PCP - General Family Medicine 03/19/24 documented as of this encounter
[2024-09-25 15:06] VITALS: BP 112/67; PULSE 61; RESP 16; TEMP 36.7; O2SAT 97; BMI 28.2
--- NOTE | 2024-09-25 15:15 | ED.GENADULT ---
HPI - General Adult General Date Seen: 09/25/24 <Moo Ugarte MD - Last Filed: 09/26/24 19:24> Chief complaint: Psychiatric Problem/Disorder <Moo Ugarte MD - Last Filed: 09/26/24 19:24> Stated complaint: Mental Health Concerns <Moo Ugarte MD - Last Filed: 09/26/24 19:24> Time Seen by Provider: 09/25/24 15:10 <Moo Ugarte MD - Last Filed: 09/26/24 19:24> History of Present Illness HPI narrative: 68-year-old gentleman with a past medical history of bipolar disorder, depression, anxiety, sleep apnea, chronic kidney disease presents to the ER today, ago re-evaluate the glue, with concern for worsening depression, thoughts of suicide. He feels as though he needs inpatient mental health. He reports that he had been inpatient at [facility] for a couple of months last fall and that he needs to come back in. He reports that he gets some psych treatment through [facility], through the [facility] system. Most recent visit with her was a tele visit on 09/14, about 11 days ago. Last visit was 08/27/24 with a plan to continue off of the wellbutrin. ? Since then, Jamel report reports that he is feeling about the same. Symptoms of depression maybe a little worse, maybe sleeping and isolating a little more. Days are worse if he has more muscle cramping/ leg pain. Some days are better than others. Cramping/ leg pain s a little better- also feels that when his mental health is better the cramping is better. ? He is possibly a little more tired off of the wellbutrin- and so far, a little improvement of muscle cramping/ leg pain off of the wellbutrin. ? Still tough to get going in the mornings, though symptoms(mood) improves in the afternoon. ? Anxiety- has improved a little bit. Muscle cramping does get worse with social situations. ? May look into getting a new therapist again- was seeing someone new at [facility], saw him 3-4 times. Did not feel this was very helpful. Not sure talk therapy is the approach he wants to take. He is considering seeing someone new. ? He has been isolating a little more again; did do something for the [employer]. ? Sleep is good- getting about 6-8 hours/ night. Often going to bed a little later. Sometimes sleeping in more in the mornings (midnight-1AM until 10AM). This is a fairly typical sleep schedule for him. ? No longer feels the AM dose of quetiapine causes any fatugue as he usually doesn't take this until he gets up and gets going. ? He is feeling well-supported at home by family and friends. Sister and brother in law close by and supportive. Has dinner with them on Tuesday nights. ? Still has hand tremor - worse with the left hand, this does seem to be a little worse since hospitalization. ? Exercise: walking Appetite: improving ? Current Psych meds: ? Seroquel 100mg in the morning and 400mg at bedtime Melatonin 5mg at bedtime as needed for sleep Suicide risk:?identifies passive thoughts of - though denies any planning or intention to harm self at this time; pt is future oriented and feels he would reach out to family/ friends with worsening symptoms/ safety concerns and present to the ER for further evaluation if needed. Currently identifies family as a barrier to harming self. Clinical Summary: Jamel Meyers has a history and presentation consistent with?Bipolar Disorder that was first diagnosed in 1987 following a manic episode. He was hospitalized for depression in 2008 and experienced an exacerbation of symptoms (depression and suicidal ideaion) that resulted in lengthy inpatient mental health (depression and suicidal ideation) and medical hospitalization (urosepsis) at [facility] 03/19-2023. He completed 8 ECT treatments prior to discharge with some cognitive side effects following this. 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 ? Jamel returns for medication recheck - he feels that symptoms of depression are possibly a little worse- though not dramatically different off of the wellbutrin. Sleeping more, more isolation. Mornings are tougher to get going, mood symptoms improve in afternoons/ evenings. Sleep is stable. Possibly some improvement with muscle cramping/ leg pain. ? Options discussed: change quetiapine to lurasidone; another trial with an antidepressant (ie: duloxetine as this also has potential to help with pain); could also consider augmentation with buspar or gabapentin for anxiety (though these would not help with the bipolar related symptoms of depression) ? -Jamel would like to remain on quetiapine so elected to try duloxetine to target anxiety and depression. Will start with the lowest dose and raise slowly as tolerated- reviewed risks of antidepressant induced sabine given dx. With any signs of sabine (irritability/ not sleeping), he will hold the duloxetine and call clinic/ present to the ER ? -continue in therapy HPI He presents to the ER today with his sister. They agree that he was doing reasonably well 10 days ago when he saw his outpatient doctor. Plan at that point was to start on Cymbalta for additional antidepressant. However, he has been informed by Medicare that they will not cover Cymbalta for longer than 30 days and this has been stressful for him. In addition to that he just notes that he has been doing more poorly for the past few days. He is isolating. He is less motivated. He is not really able to take care of himself. He is having increasing thoughts of suicide, but is not making a concrete plan. When asked about suicide, he has had 1 previous suicide attempt, back in the 1980s, but none since then. Currently, he is having thoughts of wanting to and thoughts of suicide without planning specific action. He is not homicidal. He has been sleeping okay. Appetite been decreased but he has been eating a little. He is just feeling like he is not able to care for himself and he needs inpatient admission again. He came here to the ER today with his sister Sister helps corroborate and confirm a lot of his history. She also notes that when he was hospitalized for psych at [facility] last fall he also had UTI. Since then he has been placed on Flomax for urinary retention and has been doing better. <Moo Ugarte MD - Last Filed: 09/26/24 19:24> Related Data Home medications: Home Medications ?Medication ?Instructions ?Recorded ?Confirmed levothyroxine 175 mcg tablet 175 mcg PO DAILY 08/10/22 09/26/24 quetiapine 400 mg tablet 400 mg PO HS 08/10/22 09/25/24 cyclobenzaprine 5 mg tablet 5 mg PO Q8H PRN muscle spasm 09/25/24 09/25/24 hydrocodone 5 mg-acetaminophen 325 1 tab PO Q4-6H PRN pain 09/25/24 09/25/24 mg tablet quetiapine 100 mg tablet 100 mg PO QAM 09/25/24 09/25/24 tamsulosin 0.4 mg capsule 0.8 mg PO DAILY 09/25/24 09/25/24 duloxetine 40 mg capsule,delayed 40 mg PO DAILY 09/26/24 09/26/24 release melatonin 5 mg tablet 5 mg PO HS PRN 09/26/24 09/26/24 propranolol 10 mg tablet 10 mg PO BID PRN anxiety attack 09/26/24 09/26/24 <Moo Ugarte MD - Last Filed: 09/26/24 19:24> Allergies/adverse reactions: Allergies Allergy/AdvReac Type Severity Reaction Status Date / Time No Known Drug Allergies Allergy Verified 09/25/24 15:18 <Moo Ugarte MD - Last Filed: 09/26/24 19:24> [facility] Social History: Social History Smoking Status: Never smoker How often do you have a drink containing alcohol: never How often do you have six or more drinks on one occasion: Never AUDIT-C Alcohol total score: 0 Non-prescribed substance use: denies use <Moo Ugarte MD - Last Filed: 09/26/24 19:24> Exam Narrative: Exam Narrative: Constitutional: Appears well-developed and well-nourished. Alert. Conversant. Non toxic. HENT: Head: Atraumatic. Nose: Nose normal. Mouth/Throat: Oral mucosa is clear and moist. no trismus. Pharynx normal. Eyes: Conjunctivae normal. EOM normal. Pupils equal, round, and reactive to light. No scleral icterus. Neck: Normal range of motion. Neck supple. No tracheal deviation present. Cardiovascular: Normal rate, regular rhythm. No gallop. No friction rub. No murmur heard. Symmetric radial artery pulses Pulmonary/Chest: Effort normal. No stridor. No respiratory distress. No wheezes. No rales. No rhonchi . No tenderness. Abdominal: Soft. Bowel sounds normal. No distension. No mass. No tenderness. No rebound. No guarding. No CVA tenderness. Musculoskeletal: RUE: Normal range of motion. No tenderness. No deformity LUE: Normal range of motion. No tenderness. No deformity RLE: Normal range of motion. No edema. No tenderness. No deformity LLE: Normal range of motion. No edema. No tenderness. No deformity Neurological: Alert and oriented to person, place, and time. Normal strength. CN II-VII intact. No sensory deficit. GCS eye subscore is 4. GCS verbal subscore is 5. GCS motor subscore is 6. Normal coordination . Mild intention tremor. Is chronic, per patient. Skin: Skin is warm and dry. No rash noted. No pallor. Normal capillary refill. Psychiatric: Presents to the ER with his sister. Gait is slow but steady. No ataxia. He has flat affect. Somewhat poor eye contact. He endorses worsening depression, he just feels like he is not able to care from self at home. He is depressed and anxious as well. He is thinking about suicide but not making any specific plans. He says he feels similar to when he was hospitalized last fall at [facility] <Moo Ugarte MD - Last Filed: 09/26/24 19:24> Const: Vital Signs, click to edit/add: Vital Signs - 24 hr 09/26/24 14:44 09/26/24 22:39 09/27/24 01:01 Temperature 98.8 F 98.8 F 98.8 F Pulse Rate [Pulse Oximeter] 61 65 Respiratory Rate 18 18 Blood Pressure [Ri ght Upper Arm] 110/66 112/69 Pulse Oximetry 98 98 Oxygen Delivery Me thod Room Air Room Air 09/27/24 09:57 Temperature 98.6 F Pulse Rate [Pulse Oximeter] 82 Respiratory Rate 18 Blood Pressure [Ri ght Upper Arm] 110/78 Pulse Oximetry 97 Oxygen Delivery Nm thod Room Air <Moo Ugarte MD - Last Filed: 09/26/24 19:24> Vital Signs, click to edit/add: Vital Signs - 24 hr 09/26/24 14:44 09/26/24 22:39 09/27/24 01:01 Temperature 98.8 F 98.8 F 98.8 F Pulse Rate [Pulse Oximeter] 61 65 Respiratory Rate 18 18 Blood Pressure [Ri ght Upper Arm] 110/66 112/69 Pulse Oximetry 98 98 Oxygen Delivery Me thod Room Air Room Air 09/27/24 09:57 Temperature 98.6 F Pulse Rate [Pulse Oximeter] 82 Respiratory Rate 18 Blood Pressure [Ri ght Upper Arm] 110/78 Pulse Oximetry 97 Oxygen Delivery Me thod Room Air <Sally Fabian MD - Last Filed: 09/26/24 07:05> Vital Signs, click to edit/add: Vital Signs - 24 hr 09/26/24 14:44 09/26/24 22:39 09/27/24 01:01 Temperature 98.8 F 98.8 F 98.8 F Pulse Rate [Pulse Oximeter] 61 65 Respiratory Rate 18 18 Blood Pressure [Ri ght Upper Arm] 110/66 112/69 Pulse Oximetry 98 98 Oxygen Delivery Me thod Room Air Room Air 09/27/24 09:57 Temperature 98.6 F Pulse Rate [Pulse Oximeter] 82 Respiratory Rate 18 Blood Pressure [Ri ght Upper Arm] 110/78 Pulse Oximetry 97 Oxygen Delivery Me thod Room Air <Nain Kelly DO - Last Filed: 09/27/24 11:40> Vital Signs, click to edit/add: Vital Signs - 24 hr 09/26/24 14:44 09/26/24 22:39 09/27/24 01:01 Temperature 98.8 F 98.8 F 98.8 F Pulse Rate [Pulse Oximeter] 61 65 Respiratory Rate 18 18 Blood Pressure [Ri ght Upper Arm] 110/66 112/69 Pulse Oximetry 98 98 Oxygen Delivery Me thod Room Air Room Air 09/27/24 09:57 Temperature 98.6 F Pulse Rate [Pulse Oximeter] 82 Respiratory Rate 18 Blood Pressure [Ri ght Upper Arm] 110/78 Pulse Oximetry 97 Oxygen Delivery Me thod Room Air <Alejandra Valdez MD - Last Filed: 09/27/24 11:27> Course Course ED Course: Dr. Fabian- And a shift note. Vital signs stable overnight. No issues. We continue to await placement. Will hand over care to incoming day shift partner. At this time no beds are currently available, will reassess this morning. We may have to consider a telehealth consult for medication management instead and possibly a oncology social worker consult if placement cannot be found. <Sally Fabian MD - Last Filed: 09/26/24 07:05> Reevaluation(s) Reevaluation #1: Patient signed out to Dr. Ugarte at shift change-4:00 p.m. on 09/26. I re-evaluated the patient. He is is doing well in his room. He has no complaints. He is not angry or aggressive. He remains depressed. He feels concern for his safety at home and does not feel like he can not care for himself. There are no beds available at any of the mental health facilities region. Will continue to board here in the ER. <Moo Ugarte MD - Last Filed: 09/26/24 19:24> Reevaluation #2: Patient signed out to me by Dr. Fabian at 8 a.m.. He was at that time pending inpatient placement. He has been cooperative, has not required any specific medical care as we await bed placement. He has been accepted at [facility] in [place]. A transport hold was signed as was transport paperwork. He will be transferred there for inpatient mental health admission. <Alejandra Valdez MD - Last Filed: 09/27/24 11:27> Vital Signs Vital signs: Initial Vital Signs Temperature 98.1 F 09/25/24 15:06 Temperature Source Temporal Artery Scan 09/25/24 15:06 Pulse Rate 61 09/25/24 15:06 Respiratory Rate 16 09/25/24 15:06 Blood Pressure 112/67 09/25/24 15:06 Blood Pressure Mean 82 09/25/24 15:06 Pulse Oximetry 97 09/25/24 15:06 Oxygen Delivery Method Room Air 09/25/24 15:06 Vital Signs Temperature 98.1 F 09/25/24 15:06 Pulse Rate 61 09/25/24 15:06 Respiratory Rate 16 09/25/24 15:06 Blood Pressure 112/67 09/25/24 15:06 Pulse Oximetry 97 09/25/24 15:06 Oxygen Delivery Method Room Air 09/25/24 15:06 Temperature 98.6 F 09/27/24 09:57 Pulse Rate 82 09/27/24 09:57 Respiratory Rate 18 09/27/24 09:57 Blood Pressure 110/78 09/27/24 09:57 Pulse Oximetry 97 09/27/24 09:57 Oxygen Delivery Method Room Air 09/27/24 09:57 <Moo Ugarte MD - Last Filed: 09/26/24 19:24> Initial Vital Signs Temperature 98.1 F 09/25/24 15:06 Temperature Source Temporal Artery Scan 09/25/24 15:06 Pulse Rate 61 09/25/24 15:06 Respiratory Rate 16 09/25/24 15:06 Blood Pressure 112/67 09/25/24 15:06 Blood Pressure Mean 82 09/25/24 15:06 Pulse Oximetry 97 09/25/24 15:06 Oxygen Delivery Method Room Air 09/25/24 15:06 Vital Signs Temperature 98.1 F 09/25/24 15:06 Pulse Rate 61 09/25/24 15:06 Respiratory Rate 16 09/25/24 15:06 Blood Pressure 112/67 09/25/24 15:06 Pulse Oximetry 97 09/25/24 15:06 Oxygen Delivery Method Room Air 09/25/24 15:06 Temperature 98.6 F 09/27/24 09:57 Pulse Rate 82 09/27/24 09:57 Respiratory Rate 18 09/27/24 09:57 Blood Pressure 110/78 09/27/24 09:57 Pulse Oximetry 97 09/27/24 09:57 Oxygen Delivery Method Room Air 09/27/24 09:57 <Sally Fabian MD - Last Filed: 09/26/24 07:05> Initial Vital Signs Temperature 98.1 F 09/25/24 15:06 Temperature Source Temporal Artery Scan 09/25/24 15:06 Pulse Rate 61 09/25/24 15:06 Respiratory Rate 16 09/25/24 15:06 Blood Pressure 112/67 09/25/24 15:06 Blood Pressure Mean 82 09/25/24 15:06 Pulse Oximetry 97 09/25/24 15:06 Oxygen Delivery Method Room Air 09/25/24 15:06 Vital Signs Temperature 98.1 F 09/25/24 15:06 Pulse Rate 61 09/25/24 15:06 Respiratory Rate 16 09/25/24 15:06 Blood Pressure 112/67 09/25/24 15:06 Pulse Oximetry 97 09/25/24 15:06 Oxygen Delivery Method Room Air 09/25/24 15:06 Temperature 98.6 F 09/27/24 09:57 Pulse Rate 82 09/27/24 09:57 Respiratory Rate 18 09/27/24 09:57 Blood Pressure 110/78 09/27/24 09:57 Pulse Oximetry 97 09/27/24 09:57 Oxygen Delivery Method Room Air 09/27/24 09:57 <Nain Kelly DO - Last Filed: 09/27/24 11:40> Initial Vital Signs Temperature 98.1 F 09/25/24 15:06 Temperature Source Temporal Artery Scan 09/25/24 15:06 Pulse Rate 61 09/25/24 15:06 Respiratory Rate 16 09/25/24 15:06 Blood Pressure 112/67 09/25/24 15:06 Blood Pressure Mean 82 09/25/24 15:06 Pulse Oximetry 97 09/25/24 15:06 Oxygen Delivery Method Room Air 09/25/24 15:06 Vital Signs Temperature 98.1 F 09/25/24 15:06 Pulse Rate 61 09/25/24 15:06 Respiratory Rate 16 09/25/24 15:06 Blood Pressure 112/67 09/25/24 15:06 Pulse Oximetry 97 09/25/24 15:06 Oxygen Delivery Method Room Air 09/25/24 15:06 Temperature 98.6 F 09/27/24 09:57 Pulse Rate 82 09/27/24 09:57 Respiratory Rate 18 09/27/24 09:57 Blood Pressure 110/78 09/27/24 09:57 Pulse Oximetry 97 09/27/24 09:57 Oxygen Delivery Method Room Air 09/27/24 09:57 <Alejandra Valdez MD - Last Filed: 09/27/24 11:27> Medications Administered Medications: Generic Name Dose Route Start Last Admin Trade Name Freq PRN Reason Stop Dose Admin Acetaminophen 1,000 mg 09/26/24 21:55 09/26/24 21:56 Acetaminophen 500 Mg Tablet PO 1,000 mg Q6H PRN Administration Duloxetine HCl 30 mg 09/26/24 13:15 09/27/24 08:30 [address] PO 30 mg DAILY ZAKIYA Administration Quetiapine Fumarate 400 mg 09/26/24 21:00 09/26/24 20:59 Quetiapine 100 Mg Tablet PO 400 mg HS ZAKIYA Administration Quetiapine Fumarate 100 mg 09/26/24 09:00 09/27/24 08:30 Quetiapine 100 Mg Tablet PO 100 mg DAILY ZAKIYA Administration Tamsulosin HCl 0.4 mg 09/26/24 09:00 09/27/24 08:30 Tamsulosin Hcl 0.4 Mg Capsule PO 0.4 mg DAILY ZAKIYA Administration Discontinued Medications Generic Name Dose Route Start Last Admin Trade Name Freq PRN Reason Stop Dose Admin Acetaminophen 1,000 mg 09/25/24 22:27 09/25/24 22:52 Acetaminophen 500 Mg Tablet PO 09/25/24 22:28 1,000 mg ONCE ONE Administration <Moo Ugarte MD - Last Filed: 09/26/24 19:24> Generic Name Dose Route Start Last Admin Trade Name Freq PRN Reason Stop Dose Admin Acetaminophen 1,000 mg 09/26/24 21:55 09/26/24 21:56 Acetaminophen 500 Mg Tablet PO 1,000 mg Q6H PRN Administration Duloxetine HCl 30 mg 09/26/24 13:15 09/27/24 08:30 [address] PO 30 mg DAILY ZAKIYA Administration Quetiapine Fumarate 400 mg 09/26/24 21:00 09/26/24 20:59 Quetiapine 100 Mg Tablet PO 400 mg HS ZAKIYA Administration Quetiapine Fumarate 100 mg 09/26/24 09:00 09/27/24 08:30 Quetiapine 100 Mg Tablet PO 100 mg DAILY ZAKIYA Administration Tamsulosin HCl 0.4 mg 09/26/24 09:00 09/27/24 08:30 Tamsulosin Hcl 0.4 Mg Capsule PO 0.4 mg DAILY ZAKIYA Administration Discontinued Medications Generic Name Dose Route Start Last Admin Trade Name Freq PRN Reason Stop Dose Admin Acetaminophen 1,000 mg 09/25/24 22:27 09/25/24 22:52 Acetaminophen 500 Mg Tablet PO 09/25/24 22:28 1,000 mg ONCE ONE Administration <Sally Fabian MD - Last Filed: 09/26/24 07:05> Generic Name Dose Route Start Last Admin Trade Name Freq PRN Reason Stop Dose Admin Acetaminophen 1,000 mg 09/26/24 21:55 09/26/24 21:56 Acetaminophen 500 Mg Tablet PO 1,000 mg Q6H PRN Administration Duloxetine HCl 30 mg 09/26/24 13:15 09/27/24 08:30 [address] PO 30 mg DAILY ZAKIYA Administration Quetiapine Fumarate 400 mg 09/26/24 21:00 09/26/24 20:59 Quetiapine 100 Mg Tablet PO 400 mg HS ZAKIYA Administration Quetiapine Fumarate 100 mg 09/26/24 09:00 09/27/24 08:30 Quetiapine 100 Mg Tablet PO 100 mg DAILY ZAKIYA Administration Tamsulosin HCl 0.4 mg 09/26/24 09:00 09/27/24 08:30 Tamsulosin Hcl 0.4 Mg Capsule PO 0.4 mg DAILY ZAKIYA Administration Discontinued Medications Generic Name Dose Route Start Last Admin Trade Name Freq PRN Reason Stop Dose Admin Acetaminophen 1,000 mg 09/25/24 22:27 09/25/24 22:52 Acetaminophen 500 Mg Tablet PO 09/25/24 22:28 1,000 mg ONCE ONE Administration <Nain Kelly DO - Last Filed: 09/27/24 11:40> Generic Name Dose Route Start Last Admin Trade Name Freq PRN Reason Stop Dose Admin Acetaminophen 1,000 mg 09/26/24 21:55 09/26/24 21:56 Acetaminophen 500 Mg Tablet PO 1,000 mg Q6H PRN Administration Duloxetine HCl 30 mg 09/26/24 13:15 09/27/24 08:30 [address] PO 30 mg DAILY ZAKIYA Administration Quetiapine Fumarate 400 mg 09/26/24 21:00 09/26/24 20:59 Quetiapine 100 Mg Tablet PO 400 mg HS ZAKIYA Administration Quetiapine Fumarate 100 mg 09/26/24 09:00 09/27/24 08:30 Quetiapine 100 Mg Tablet PO 100 mg DAILY ZAKIYA Administration Tamsulosin HCl 0.4 mg 09/26/24 09:00 09/27/24 08:30 Tamsulosin Hcl 0.4 Mg Capsule PO 0.4 mg DAILY ZAKIYA Administration Discontinued Medications Generic Name Dose Route Start Last Admin Trade Name Freq PRN Reason Stop Dose Admin Acetaminophen 1,000 mg 09/25/24 22:27 09/25/24 22:52 Acetaminophen 500 Mg Tablet PO 09/25/24 22:28 1,000 mg ONCE ONE Administration <Alejandra Valdez MD - Last Filed: 09/27/24 11:27> Medical Decision Making MDM Narrative Medical decision making narrative: Pleasant 68-year-old gentleman with a history of bipolar, depression, anxiety with previous hospitalizations. He presents to the ER today with his sister requesting inpatient psych admission for worsening depression, hopelessness, inability to care for himself at home. He is also having suicidal thoughts but has not yet made a specific plan or an attempt. He does have a previous suicide attempt in the distant past, about 40 years ago. He had been hospitalized [facility] for a couple of months for psych last fall. He had been doing fairly well until then, until this week where he has really felt like he has decompensated. I have ordered laboratory workup and urine drug screen, urinalysis for medical screening. At this point, he is not displaying any signs of sepsis. He has no recent cough or URI symptoms to raise concern for COVID or influenza I have ordered tele health evaluation by Richard. Discussed with my oncoming partner, Dr. Rodriguez, will follow-up after he is evaluated by Richard and re-evaluate the patient. Anticipate he likely will meet criteria for inpatient mental health admission. <Moo Ugarte MD - Last Filed: 09/26/24 19:24> patient is signed out to me pending placement. in his room he is clearly able to do his ADLs and perform his basic needs. we attempted to transfer him again on 09/26 but there were no available placements as everything was at capacity. I spoke to the patient again and he is unsure if he thinks the Cymbalta started making things worse or not. I spoke to the [facility] psychiatrist who states if we are not believe the Cymbalta is working we can wean him off it in switch him to Zoloft 50 mg. At this time I do not believe he will be in our emergency department long enoughfor us to do this but I did inform the patient it is an option. He has been on it before <Nain Kelly DO - Last Filed: 09/27/24 11:40> Lab Data Lab results reviewed: Yes I reviewed the patient's lab results <Sally Fabian MD - Last Filed: 09/26/24 07:05> Labs: Lab Results 09/25/24 09/25/24 09/27/24 Range/Units 16:06 Unknown 09:19 WBC 4.21 L (4.50-11.00) K/uL RBC 5.07 (4.30-5.90) m/uL Hgb 15.5 (13.5-17.5) gm/dL Hct 47.2 (37.0-53.0) % MCV 93 (80-100) fL MCH 31 (26-34) pg MCHC 33 (32-36) gm/dL RDW Coeff of Raúl 13.0 (11.5-15.5) % Plt Count 184 (140-440) K/uL Neut % (Auto) 59.3 (42.0-72.0) % Lymph % (Auto) 27.6 (20-44) % Terrell % (Auto) 10.5 (0.0-11.0) % Eos % (Auto) 1.7 (0.0-7.0) % Baso % (Auto) 0.7 (0.0-3.0) % Neut # (Auto) 2.50 (1.7-7.0) K/uL Lymph # (Auto) 1.20 (0.90-2.90) K/uL Terrell # (Auto) 0.40 (0.00-0.90) K/UL Eos # (Auto) 0.10 (0.00-0.50) K/uL Baso # (Auto) 0.00 (0.00-0.30) K/uL Abs Immat Gran (auto) 0.00 (0.00-0.30) K/uL Imm/Tot Granulo (auto) 0.2 % Sodium 138 (135-149) mmol/L Potassium 4.6 (3.6-5.1) mmol/L Chloride 107 (96-114) mmol/L Carbon Dioxide 22 (20-32) mmol/L Anion Gap 9 (7-15) mEq/L BUN 27 (7-30) mg/dL Creatinine 1.3 (0.5-1.5) mg/dL Estimated Creat Clear 68.54 Estimated GFR 60 ml/min Glucose 81 (60-115) mg/dL Calcium 9.6 (8.4-10.6) mg/dL Total Bilirubin 0.8 (0.1-1.5) mg/dL AST 18 (12-35) U/L ALT 21 (4-50) U/L Alkaline Phosphatase 40 (40-150) U/L Total Protein 6.5 (6.0-8.3) g/dL Albumin 4.2 (3.3-5.0) g/dL TSH 0.715 (0.270-4.200) uIU/mL Urine Color Yellow (Yellow) Urine Appearance Clear (Clear) Urine pH 5.5 (5.0-8.5) Ur Specific Steptoe 1.010 (1.000-1.030) Urine Protein Negative (Negative) Urine Glucose (UA) Negative (Negative) Urine Ketones Negative (Negative) Urine Blood Negative (Negative) Urine Nitrite Negative (Negative) Urine Bilirubin Negative (Negative) Urine Urobilinogen 0.2 (0.2-1.0) Ur Leukocyte Esterase Negative (Negative) Urine RBC 0-2 (0-2) Urine WBC 0-2 (0-5) Ur Squamous Epith Cells None (None-Few) Urine Bacteria None (None) Urine Opiates Screen Negative (Negative) Ur Oxycodone Screen Negative (Negative) Urine Methadone Screen Negative (Negative) Ur Barbiturates Screen Negative (Negative) U Tricyclic Antidepress Negative (Negative) Ur Phencyclidine Scrn Negative (Negative) Ur Amphetamines Screen Negative (Negative) U Methamphetamines Scrn Negative (Negative) U Benzodiazepines Scrn Negative (Negative) Urine Cocaine Screen Negative (Negative) U Marijuana (THC) Screen Negative (Negative) Ur Drug Screen Comment See Note Ethyl Alcohol < 0.01 L (0.01-0.03) % SARS-CoV-2 (PCR) Negative SARS-CoV-2 (Negative) Influenza Type A (PCR) Negative PCR FLU A (Negative) Influenza Type B (PCR) Negative PCR FLU B (Negative) RSV (PCR) Negative PCR RSV (Negative) <Moo Ugarte MD - Last Filed: 09/26/24 19:24> Lab Results 09/25/24 09/25/24 09/27/24 Range/Units 16:06 Unknown 09:19 WBC 4.21 L (4.50-11.00) K/uL RBC 5.07 (4.30-5.90) m/uL Hgb 15.5 (13.5-17.5) gm/dL Hct 47.2 (37.0-53.0) % MCV 93 (80-100) fL MCH 31 (26-34) pg MCHC 33 (32-36) gm/dL RDW Coeff of Raúl 13.0 (11.5-15.5) % Plt Count 184 (140-440) K/uL Neut % (Auto) 59.3 (42.0-72.0) % Lymph % (Auto) 27.6 (20-44) % Terrell % (Auto) 10.5 (0.0-11.0) % Eos % (Auto) 1.7 (0.0-7.0) % Baso % (Auto) 0.7 (0.0-3.0) % Neut # (Auto) 2.50 (1.7-7.0) K/uL Lymph # (Auto) 1.20 (0.90-2.90) K/uL Terrell # (Auto) 0.40 (0.00-0.90) K/UL Eos # (Auto) 0.10 (0.00-0.50) K/uL Baso # (Auto) 0.00 (0.00-0.30) K/uL Abs Immat Gran (auto) 0.00 (0.00-0.30) K/uL Imm/Tot Granulo (auto) 0.2 % Sodium 138 (135-149) mmol/L Potassium 4.6 (3.6-5.1) mmol/L Chloride 107 (96-114) mmol/L Carbon Dioxide 22 (20-32) mmol/L Anion Gap 9 (7-15) mEq/L BUN 27 (7-30) mg/dL Creatinine 1.3 (0.5-1.5) mg/dL Estimated Creat Clear 68.54 Estimated GFR 60 ml/min Glucose 81 (60-115) mg/dL Calcium 9.6 (8.4-10.6) mg/dL Total Bilirubin 0.8 (0.1-1.5) mg/dL AST 18 (12-35) U/L ALT 21 (4-50) U/L Alkaline Phosphatase 40 (40-150) U/L Total Protein 6.5 (6.0-8.3) g/dL Albumin 4.2 (3.3-5.0) g/dL TSH 0.715 (0.270-4.200) uIU/mL Urine Color Yellow (Yellow) Urine Appearance Clear (Clear) Urine pH 5.5 (5.0-8.5) Ur Specific Steptoe 1.010 (1.000-1.030) Urine Protein Negative (Negative) Urine Glucose (UA) Negative (Negative) Urine Ketones Negative (Negative) Urine Blood Negative (Negative) Urine Nitrite Negative (Negative) Urine Bilirubin Negative (Negative) Urine Urobilinogen 0.2 (0.2-1.0) Ur Leukocyte Esterase Negative (Negative) Urine RBC 0-2 (0-2) Urine WBC 0-2 (0-5) Ur Squamous Epith Cells None (None-Few) Urine Bacteria None (None) Urine Opiates Screen Negative (Negative) Ur Oxycodone Screen Negative (Negative) Urine Methadone Screen Negative (Negative) Ur Barbiturates Screen Negative (Negative) U Tricyclic Antidepress Negative (Negative) Ur Phencyclidine Scrn Negative (Negative) Ur Amphetamines Screen Negative (Negative) U Methamphetamines Scrn Negative (Negative) U Benzodiazepines Scrn Negative (Negative) Urine Cocaine Screen Negative (Negative) U Marijuana (THC) Screen Negative (Negative) Ur Drug Screen Comment See Note Ethyl Alcohol < 0.01 L (0.01-0.03) % SARS-CoV-2 (PCR) Negative SARS-CoV-2 (Negative) Influenza Type A (PCR) Negative PCR FLU A (Negative) Influenza Type B (PCR) Negative PCR FLU B (Negative) RSV (PCR) Negative PCR RSV (Negative) <Sally Fabian MD - Last Filed: 09/26/24 07:05> Lab Results 09/25/24 09/25/24 09/27/24 Range/Units 16:06 Unknown 09:19 WBC 4.21 L (4.50-11.00) K/uL RBC 5.07 (4.30-5.90) m/uL Hgb 15.5 (13.5-17.5) gm/dL Hct 47.2 (37.0-53.0) % MCV 93 (80-100) fL MCH 31 (26-34) pg MCHC 33 (32-36) gm/dL RDW Coeff of Raúl 13.0 (11.5-15.5) % Plt Count 184 (140-440) K/uL Neut % (Auto) 59.3 (42.0-72.0) % Lymph % (Auto) 27.6 (20-44) % Terrell % (Auto) 10.5 (0.0-11.0) % Eos % (Auto) 1.7 (0.0-7.0) % Baso % (Auto) 0.7 (0.0-3.0) % Neut # (Auto) 2.50 (1.7-7.0) K/uL Lymph # (Auto) 1.20 (0.90-2.90) K/uL Terrell # (Auto) 0.40 (0.00-0.90) K/UL Eos # (Auto) 0.10 (0.00-0.50) K/uL Baso # (Auto) 0.00 (0.00-0.30) K/uL Abs Immat Gran (auto) 0.00 (0.00-0.30) K/uL Imm/Tot Granulo (auto) 0.2 % Sodium 138 (135-149) mmol/L Potassium 4.6 (3.6-5.1) mmol/L Chloride 107 (96-114) mmol/L Carbon Dioxide 22 (20-32) mmol/L Anion Gap 9 (7-15) mEq/L BUN 27 (7-30) mg/dL Creatinine 1.3 (0.5-1.5) mg/dL Estimated Creat Clear 68.54 Estimated GFR 60 ml/min Glucose 81 (60-115) mg/dL Calcium 9.6 (8.4-10.6) mg/dL Total Bilirubin 0.8 (0.1-1.5) mg/dL AST 18 (12-35) U/L ALT 21 (4-50) U/L Alkaline Phosphatase 40 (40-150) U/L Total Protein 6.5 (6.0-8.3) g/dL Albumin 4.2 (3.3-5.0) g/dL TSH 0.715 (0.270-4.200) uIU/mL Urine Color Yellow (Yellow) Urine Appearance Clear (Clear) Urine pH 5.5 (5.0-8.5) Ur Specific Steptoe 1.010 (1.000-1.030) Urine Protein Negative (Negative) Urine Glucose (UA) Negative (Negative) Urine Ketones Negative (Negative) Urine Blood Negative (Negative) Urine Nitrite Negative (Negative) Urine Bilirubin Negative (Negative) Urine Urobilinogen 0.2 (0.2-1.0) Ur Leukocyte Esterase Negative (Negative) Urine RBC 0-2 (0-2) Urine WBC 0-2 (0-5) Ur Squamous Epith Cells None (None-Few) Urine Bacteria None (None) Urine Opiates Screen Negative (Negative) Ur Oxycodone Screen Negative (Negative) Urine Methadone Screen Negative (Negative) Ur Barbiturates Screen Negative (Negative) U Tricyclic Antidepress Negative (Negative) Ur Phencyclidine Scrn Negative (Negative) Ur Amphetamines Screen Negative (Negative) U Methamphetamines Scrn Negative (Negative) U Benzodiazepines Scrn Negative (Negative) Urine Cocaine Screen Negative (Negative) U Marijuana (THC) Screen Negative (Negative) Ur Drug Screen Comment See Note Ethyl Alcohol < 0.01 L (0.01-0.03) % SARS-CoV-2 (PCR) Negative SARS-CoV-2 (Negative) Influenza Type A (PCR) Negative PCR FLU A (Negative) Influenza Type B (PCR) Negative PCR FLU B (Negative) RSV (PCR) Negative PCR RSV (Negative) <Nain Kelly, DO - Last Filed: 09/27/24 11:40> Lab Results 09/25/24 09/25/24 09/27/24 Range/Units 16:06 Unknown 09:19 WBC 4.21 L (4.50-11.00) K/uL RBC 5.07 (4.30-5.90) m/uL Hgb 15.5 (13.5-17.5) gm/dL Hct 47.2 (37.0-53.0) % MCV 93 (80-100) fL MCH 31 (26-34) pg MCHC 33 (32-36) gm/dL RDW Coeff of Raúl 13.0 (11.5-15.5) % Plt Count 184 (140-440) K/uL Neut % (Auto) 59.3 (42.0-72.0) % Lymph % (Auto) 27.6 (20-44) % Terrell % (Auto) 10.5 (0.0-11.0) % Eos % (Auto) 1.7 (0.0-7.0) % Baso % (Auto) 0.7 (0.0-3.0) % Neut # (Auto) 2.50 (1.7-7.0) K/uL Lymph # (Auto) 1.20 (0.90-2.90) K/uL Terrell # (Auto) 0.40 (0.00-0.90) K/UL Eos # (Auto) 0.10 (0.00-0.50) K/uL Baso # (Auto) 0.00 (0.00-0.30) K/uL Abs Immat Gran (auto) 0.00 (0.00-0.30) K/uL Imm/Tot Granulo (auto) 0.2 % Sodium 138 (135-149) mmol/L Potassium 4.6 (3.6-5.1) mmol/L Chloride 107 (96-114) mmol/L Carbon Dioxide 22 (20-32) mmol/L Anion Gap 9 (7-15) mEq/L BUN 27 (7-30) mg/dL Creatinine 1.3 (0.5-1.5) mg/dL Estimated Creat Clear 68.54 Estimated GFR 60 ml/min Glucose 81 (60-115) mg/dL Calcium 9.6 (8.4-10.6) mg/dL Total Bilirubin 0.8 (0.1-1.5) mg/dL AST 18 (12-35) U/L ALT 21 (4-50) U/L Alkaline Phosphatase 40 (40-150) U/L Total Protein 6.5 (6.0-8.3) g/dL Albumin 4.2 (3.3-5.0) g/dL TSH 0.715 (0.270-4.200) uIU/mL Urine Color Yellow (Yellow) Urine Appearance Clear (Clear) Urine pH 5.5 (5.0-8.5) Ur Specific Ste[place]oe 1.010 (1.000-1.030) Urine Protein Negative (Negative) Urine Glucose (UA) Negative (Negative) Urine Ketones Negative (Negative) Urine Blood Negative (Negative) Urine Nitrite Negative (Negative) Urine Bilirubin Negative (Negative) Urine Urobilinogen 0.2 (0.2-1.0) Ur Leukocyte Esterase Negative (Negative) Urine RBC 0-2 (0-2) Urine WBC 0-2 (0-5) Ur Squamous Epith Cells None (None-Few) Urine Bacteria None (None) Urine Opiates Screen Negative (Negative) Ur Oxycodone Screen Negative (Negative) Urine Methadone Screen Negative (Negative) Ur Barbiturates Screen Negative (Negative) U Tricyclic Antidepress Negative (Negative) Ur Phencyclidine Scrn Negative (Negative) Ur Amphetamines Screen Negative (Negative) U Methamphetamines Scrn Negative (Negative) U Benzodiazepines Scrn Negative (Negative) Urine Cocaine Screen Negative (Negative) U Marijuana (THC) Screen Negative (Negative) Ur Drug Screen Comment See Note Ethyl Alcohol < 0.01 L (0.01-0.03) % SARS-CoV-2 (PCR) Negative SARS-CoV-2 (Negative) Influenza Type A (PCR) Negative PCR FLU A (Negative) Influenza Type B (PCR) Negative PCR FLU B (Negative) RSV (PCR) Negative PCR RSV (Negative) <Alejandra Valdez MD - Last Filed: 09/27/24 11:27> Discharge Plan Discharge Clinical Impression: Depression <Moo Ugarte MD - Last Filed: 09/26/24 19:24> Prescriptions: No Action levothyroxine 175 mcg tablet 175 mcg PO DAILY quetiapine 400 mg tablet 400 mg PO HS hydrocodone-acetaminophen 5-325 mg tablet 1 tab PO Q4-6H PRN (Reason: pain) tamsulosin 0.4 mg capsule 0.8 mg PO DAILY cyclobenzaprine 5 mg tablet 5 mg PO Q8H PRN (Reason: muscle spasm) quetiapine 100 mg tablet 100 mg PO QAM duloxetine 40 mg capsule,delayed release(DR/EC) 40 mg PO DAILY propranolol 10 mg tablet 10 mg PO BID PRN (Reason: anxiety attack) melatonin 5 mg tablet 5 mg PO HS PRN <Moo Ugarte MD - Last Filed: 09/26/24 19:24> Follow Up/Referrals: Jeffrey Jeronimo MD [Primary Care Provider] - <Moo Ugarte MD - Last Filed: 09/26/24 19:24>
[2024-09-25 15:54] LABS: Appearance Urine Clear (Clear); Bilirubin Urine Negative (Negative); Blood Urine Negative (Negative); Color Urine Yellow (Yellow); Glucose Urine Negative (Negative); Ketones Urine Negative (Negative); Leukocyte Esterase Urine Negative (Negative); Nitrite Urine Negative (Negative); Protein Urine Negative (Negative); Urobilinogen Urine 0.2 (0.2-1.0); pH Urine 5.5 (5.0-8.5)
[2024-09-25 16:00] LABS: RBC Urine 0-2 (0-2); WBC Urine 0-2 (0-5)
[2024-09-25 16:02] LABS: Amphetamine Screen Urine Negative (Negative); Barbiturate Screen Urine Negative (Negative); Benzodiazepines Screen Urine Negative (Negative); Cannabinoid Screen Urine Negative (Negative); Cocaine Screen Urine Negative (Negative); Methadone Screen Urine Negative (Negative); Methamphetamines Screen Urine Negative (Negative); Opiate Screen Urine Negative (Negative); Oxycodone Screen Urine Negative (Negative); Phencyclidine Screen Urine Negative (Negative); Tricyclic Antidepressant Urine Negative (Negative)
[2024-09-25 16:12] LABS: Basophils Percent Auto 0.7 % (0.0-3.0); Eosinophils Percent Auto 1.7 % (0.0-7.0); Hematocrit 47.2 % (37.0-53.0); Hemoglobin* 15.5 gm/dL (13.5-17.5); Immature Granulocytes Pct Auto 0.2 %; Lymphocytes Percent Auto 27.6 % (20-44); Mean Corpuscular HGB Conc 33 gm/dL (32-36); Mean Corpuscular Hemoglobin 31 pg (26-34); Mean Corpuscular Volume 93 fL (80-100); Monocytes Percent Auto 10.5 % (0.0-11.0); Neutrophils Percent Auto 59.3 % (42.0-72.0); Platelet Count* 184 K/uL (140-440); Red Blood Count 5.07 m/uL (4.30-5.90); White Blood Count* 4.21 K/uL (4.50-11.00)
[2024-09-25 16:22] LABS: Slide Review Reflex No
[2024-09-25 16:24] LABS: Albumin* 4.2 g/dL (3.3-5.0); Chloride* 107 mmol/L (96-114); Sodium* 138 mmol/L (135-149)
[2024-09-25 16:25] LABS: Potassium* 4.6 mmol/L (3.6-5.1)
[2024-09-25 16:27] LABS: Alanine Aminotransferase* 21 U/L (4-50); Alkaline Phosphatase* 40 U/L (40-150); Anion Gap 9 mEq/L (7-15); Aspartate Amino Transferase* 18 U/L (12-35); Bilirubin Total* 0.8 mg/dL (0.1-1.5); Blood Urea Nitrogen* 27 mg/dL (7-30); Calcium* 9.6 mg/dL (8.4-10.6); Carbon Dioxide* 22 mmol/L (20-32); Creatinine* 1.3 mg/dL (0.5-1.5); Est. Creatinine Clearance* 68.54; Estimated Glomerular Filt Rate 60 ml/min; Glucose* 81 mg/dL (60-115); Total Protein* 6.5 g/dL (6.0-8.3)
[2024-09-25 16:32] LABS: Ethanol* < 0.01 % (0.01-0.03)
--- OUTSIDE RECORDS SUMMARY | 2024-09-25 16:49 | XMS_ITS | Clinical Summary ---
Author Organization [employer] [facility] Address [address] [place] [address] Care Team Providers Care Steel Rod Buster Name Role Phone Jeffrey Jeronimo MD Primary Care Provider + Allergies No known active allergies Medications ferrous sulfate 325 mg delayed release tabletIndicatio ns:Iron deficiency anemia, unspecified Take 1 tablet by mouth once daily. 90 tablet 1 7 Active medication order composerIndicat ions:NALLELY (obstructive sleep apnea) HST 03/08/2016 AHI-22; diagnosis obstructive sleep apnea; Treatment #1 MRD 1 unit 9 Active levothyroxine (SYNTHROID) 175 mcg tabletIndicatio ns:Hypothyroidi sm, unspecified type TAKE 1 TABLET BY MOUTH ONCE DAILY 100 Tablet 2 4 Active propranoloL (INDERAL) 10 mg tabletIndicatio ns:Generalized anxiety disorder Take 1 Tablet (10 mg) by mouth two times daily. As needed for acute anxiety 30 Tablet 4 Active Additional Information Patient taking differently:10 mg Oral BID,PRN only As needed for acute anxiety, Reported on 09/13/2024 tamsulosin 0.4 mg capsuleIndicati ons:BPH with obstruction/low er urinary tract symptoms Take 2 Capsules (0.8 mg) by mouth once daily after a meal. 60 Capsule 11 4 Active cyclobenzaprine (FLEXERIL) 5 mg tabletIndicatio ns:Leg cramping Take 1 Tablet (5 mg) by mouth every 8 hours if needed for Muscle Spasm. 30 Tablet 5 Active QUEtiapine (SEROQUEL) 400 mg tabletIndicatio ns:Bipolar I disorder, current episode depressed (HC) Take 1 Tablet (400 mg) by mouth at bedtime. 30 Tablet 2 5 Active QUEtiapine (SEROQUEL) 100 mg tabletIndicatio ns:Bipolar I disorder, current episode depressed (HC) Take 1 Tablet (100 mg) by mouth once daily. In the morning 30 Tablet 1 5 Active DULoxetine (CYMBALTA) 20 mg Delayed-release capsuleIndicati ons:Bipolar I disorder, current episode depressed (HC),Generalize d anxiety disorder,Obsess anne marie thinking Week 1: Take 1 Capsule (20 mg) by mouth once daily for 7 days. Then switch to the 40mg capsule daily 7 Capsule 5 Active DULoxetine (CYMBALTA) 40 mg cpDRIndications :Bipolar I disorder, current episode depressed (HC),Generalize d anxiety disorder,Obsess anne marie thinking Week 2: take 1 capsule (40mg) by mouth once daily 30 Capsule 1 5 Active QUEtiapine (SEROQUEL) 400 mg tabletIndicatio ns:Bipolar I disorder, most recent episode depressed, severe without psychotic features (HC) TAKE ONE TABLET BY MOUTH ONE TIME DAILY AT BEDTIME 30 Tablet 2 4 025 Discontin ued(Reord er (E-cancel not sent)) QUEtiapine (SEROQUEL) 100 mg tabletIndicatio ns:Bipolar I disorder, current episode depressed (HC) Take 1 Tablet (100 mg) by mouth once daily. In the morning 30 Tablet 1 4 025 Discontin ued(Reord er (E-cancel not sent)) Active Problems Problem Noted Date Diagnosed Date Bipolar I disorder, current or most recent episode depressed, with psychotic features 08/09/2024 Stage 3a chronic kidney disease 08/09/2024 Recurrent major depressive disorder, in partial remission 05/23/2024 ANNIE (generalized anxiety disorder) 05/23/2024 Encounter for long-term current use of medicatio n 06/20/2017 Benign non-nodular prostatic hyperplasia with lower urinary tract symptoms 04/13/2017 Elevated PSA 04/13/2017 Routine adult health maintenance 2016 Overview (11/03/2016): Colonoscopy 09/2016 poor prep, incomplete exam, repeat this year Colonoscopy 10/2016 Incomplete due to a long colon, follow up CT colonography normal, recommend repeat CT colon every 5 years Erectile dysfunction 04/28/2016 Generalized anxiety disorder 03/31/2016 NALLELY 03/08/2016 HST AHI-21 03/12/2016 Incomplete emptying of bladder 07/07/2015 Bipolar affective disorder, currently depressed, mild Hypothyroid Encounters Date Type Department Care Team Description 09/25/2024 Refill [facility] [address] [place] [address] Jeffrey Jeronimo MD Refill Request (Levothyroxine) 09/25/[address] [address] Renay Pepe NP Refill Request (Quetiapine) 09/14/2024 9:00 AM HIDE SALTER Phone Office Visit [facility] [address] [place] [address] Renay Pepe NP Medication Management (Things are stable); Phone Visit 09/14/2024 Travel 08/27/2024 9:30 AM HIDE SALTER Phone Office Visit [address] [address] Renay Pepe NP Follow Up; Telehealth 08/27/2024 Travel 08/22/2024 2:15 PM HIDE SALTER Orders Only [address] [address] Lab, [place] [facility] 08/22/2024 Travel 08/20/2024 Telephone [facility] [address] [place] [address] Aries Tamera Reta, DO Results (labs 08/14/2024) 08/17/2024 Telephone [facility] [address] [place] [address] Darrionra Tamera Reta, DO Results 08/15/2024 11:30 AM HIDE SALTER Phone Office Visit [facility] [address] [place] [address] Renay Pepe NP Phone Visit; Medication Management (Doing okay, a little bit tired//Due for: Eye Exam) 08/14/2024 3:00 PM HIDE SALTER Office Visit [facility] [address] [place] [address] Tamera Chris, DO Follow Up (Muscle cramps in legs, lab results) 08/14/2024 Travel 08/09/2024 4:10 PM HIDE SALTER Office Visit [address] [address] Jeffrey Jeronimo MD Pain (Leg cramps since May.15, rt leg is worse, pain shoots upward to shoulder) 08/09/2024 Travel 08/07/2024 3:00 PM HIDE SALTER Office Visit [facility] [address] [place] [address] Renay Pepe NP Medication Management (Things are going good) 08/07/2024 Travel 07/19/2024 Telephone [facility] [address] [place] [address] Renay Pepe NP Refill Request 07/18/2024 7:30 AM HIDE SALTER Phone Office Visit [address] [address] Renay Pepe NP Phone Visit 07/18/2024 Travel 07/10/2024 7:30 AM HIDE SALTER Phone Office Visit [address] [address] Renay Pepe NP Phone Visit; Medication Management 07/10/2024 Travel 07/09/2024 Nurse Triage [address] [address] Renay Pepe NP Anxiety 07/06/2024 9:00 AM HIDE SALTER Phone Office Visit [facility] [address] [place] [address] Renay Pepe NP Phone Visit 07/06/2024 Telephone [facility] [address] [facility] [address] Renay Pepe NP Letter 07/06/2024 Refill [facility] [address] [facility] [address] Renay Pepe NP Refill Request (Lamotrigine, Quetiapine) 07/06/2024 Travel 07/03/2024 Telephone [facility] [address] [facility] [address] Renay Pepe NP ACC Order Request 07/03/2024 Nurse Triage [facility] [address] [facility] [address] Renay Pepe NP Anxiety from Last 3 Months Immunizations Name Administration Dates Next Due COVID-19 vaccine (Snapchat-Bio NTech 30mcg/0.3mL) 12YO+ MJ-SUCROSE PF, MDV 11/28/2021 COVID-19 vaccine (Snapchat-[employer] NTech 30mcg/0.3mL) PF, MDV 11/08/2020,10/18/2020 Influenza, High-dose Quadriv alent Inactivated 05/24/2023,06/05/2021 Influenza, IIV3 (Age >=3 years) 07/01/2017,04/02,05/12/2009 Influenza, IIV4 04/06/2018, 7,06/02/2016,2013 Influenza, IIV4 (=>6mos) MDV 05/15/2020,05/08/20 19 Influenza, Inactivated AIIV4 (Age 65+ Years) Preserv Free 04/29/2022 Family History Medical History Relation Name Comments Cancer Father liver Good Health Mother Relation Name Status Comments Father Mother Alive Social History Tobacco Use Types Packs/Day Years Used Date Smoking Tobacco: Never Smokeless Tobacco: Never Tobacco Cessation:Counseling Given: Yes Alcohol Use Standard Drinks/Week Comments Not Currently 0 (1 standard drink = 0.6 oz pur e alcohol) PHQ-2 Answer Date Recorded PHQ-2 TOTAL SCORE 4 09/13/2024 Social Connections Answer Date Recorded Do you often feel lonely or isolated from those around you? 4 05/24/2024 Financial Resource Strain Answer Date R ecorded Difficulty of Paying Living Expenses 3 05/24/2024 Difficulty of Paying Living Expenses Not on file 05/24/2024 Food Insecurity Answer Date Recorded Do you worry your food will run out before you are able to buy more? 1 05/24/2024 Transportation Needs Answer Date Record ed Does lack of transportation keep you from medica l appointments? 1 05/24/2024 Does lack of transportation keep you from work, meetings or getting things that you need? 1 05/24/2024 Housing Stability Answer Date Recorded What is your housing situation today? 1 05/24/2024 Utilities Answer Date Recorded Do you have trouble paying f or utilities (for example, heat, electricity, water, phone)? 1 05/24/2024 Sex and Gender Information Value Date Recorded Sex Assigned at Not on file Legal Sex Male 8:09 AM HIDE SALTER Gender Identity Not on file Sexual Orientation Not on file Occupation Industry Job Start Date Job End Date retired Not on file Not on file Not on file Obstetrics History Last Filed Vital Signs Vital Sign Reading Time Taken Comments Blood Pressure 125/82 08/14/2024 2:53 PM HIDE SALTER Pulse 66 08/14/2024 2:53 PM HIDE SALTER Temperature 36.4 C (97.5 F) 05/24/2024 2:33 PM CDT Respiratory Rate 20 03/16/2022 1:34 PM CDT Oxygen Saturation 98% 08/14/2024 2:53 PM HIDE SALTER Inhaled Oxygen Concentration - - Weight 108.4 kg (238 lb 14.4 oz) 08/14/2024 2:53 PM HIDE SALTER Height 195.6 cm (6' 5) 08/09/2024 4:02 PM HIDE SALTER Body Mass Index 28.33 08/09/2024 4:02 PM HIDE SALTER Plan of Treatment Upcoming Encounters Date Type Department Care Team (Late st Contact Info) Description 10/22/2024 1:30 PM CDT Office Visit [facility] [address] [place] [address] Renay Pepe NP [address] [place] [address] Health Maintenance Due Date Last Done Comments Tdap 10/12/1966 Hepatitis C screening for ag e 18-79 10/12/1973 Tetanus booster 1975 Pneumococcal series for age 50+ (1 of 1 - PCV) 10/12/2005 Zoster (shingles) series for age 50+ (1 of 2) 10/12/2005 Medicare Wellness for age 65+ 10/12/2020 Fecal testing non-DNA (FIT,FOBT,iFOBT) for age 45-75 05/06/2023 05/06/2022 (Completed o [facility] [place]), 08/25/2016 COVID-19 vaccine series ( season) 2024 11/28/2021, 05/10/2021, 11/08/2020, Additional history exists Influenza for age 65+ 04/01/2024 05/24/2023 , 04/29/2022, 06/05/2021, Additional history exists BMI (ht and wt on same day) for age 18+ 08/09/2025 08/09/2024, 08/07/2024, 05/24/2024, Additional history exists Depression screening for age 12+ 09/14/2025 09/14/2024, 09/13/2024, 08/27/2024, Additional history exists CT Colonography for age 45-75 05/06/2027, 11/02/2016, 11/02/2016 Lipids for age 45-75 08/19/2028 08/19/2023, 05/04/2022, 03/02/2021, Additional history exists RSV vaccine for adults or (1 - 1-dose 75+ series) 10/12/2030 Procedures Procedure Name Priority Date/Time Associated Diagnosis Comments PSA TOTAL Routine 08/22/2024 1:05 PM HIDE SALTER Elevated PSA TSH WITH REFLEX Routine 08/22/2024 1:05 PM HIDE SALTER Leg cramping VITAMIN D 25 (DEFICIENCY) Routine 08/14/2024 3:26 PM HIDE SALTER Leg cramping Vitamin D deficiency SEDIMENTATION RATE Routine 08/14/2024 3: 26 PM HIDE SALTER Leg cramping ANTINUCLEAR ANTIBODY BY IFA Routine 08/14/2024 3:26 PM HIDE SALTER Leg cramping RA QUANTITATIVE Routine 08/14/2024 3:26 PM HIDE SALTER Leg cramping CBC WITH AUTO DIFFERENTIAL Routine 08/09/2024 5:03 PM HIDE SALTER Myalgia C-REACTIVE PROTEIN Routine 08/09/2024 5: 03 PM HIDE SALTER Myalgia COMP METABOLIC PANEL Routine 08/09/2024 5:03 PM HIDE SALTER Myalgia CK TOTAL Routine 08/09/2024 5:03 PM HIDE SALTER Myalgia LIPID PANEL W REFLEX MEASURED LDL Routine 08/19/2023 9: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 CT ABDOMEN PELVIS COLONOGRAPHY SCREENING WO Routine 05/06/2022 3:35 PM CDT Screening for colon cancer OCCULT BLOOD IFOBT STOOL Routine 08/25/2016 3:36 PM HIDE SALTER Screening for colorectal cancer from Last 3 Months or Most Recently Relevant to Health Maintenance Results * TSH WITH REFLEX (08/22/2024 1:05 PM HIDE SALTER) TSH W/REFLEX TO FT4 2.09 0.40 - 4.50 mIU/L [facility] [place] Blood BLOOD SPECIMEN / Unknown 08/22/2024 1:05 PM HIDE SALTER 08/22/2024 1:06 PM HIDE SALTER us Jeffrey Jeronimo MD CHEMISTRY Final Re sult [employer] [address] [place] [address], [facility] [address] [place] [address] * (ABNORMAL) PSA TOTAL (08/22/2024 1:05 PM HIDE SALTER) PSA, TOTAL 5.60(H) < OR = 4.00 ng/mL [facility] [place] Comment: The total PSA value from this assay system is standardized against the WHO standard. The test result will be approximately 20% lower when compared to the equimolar-standardized total PSA (Jurgen Kingston). Comparison of serial PSA results should be interpreted with this fact in mind. This test was performed using the Siemens chemiluminescent method. Values obtained from different assay methods cannot be used interchangeably. PSA levels, regardless of value, should not be interpreted as absolute evidence of the presence or absence of disease. Blood BLOOD SPECIMEN / Unknown 08/22/2024 1:05 PM HIDE SALTER 08/22/2024 1:06 PM HIDE SALTER Linette VALENCIA CHEMISTRY Final Resul t [employer] [facility] [address] [facility] [place] [address], [facility] [address] [facility] [address] * SEDIMENTATION RATE (08/14/2024 3:26 PM HIDE SALTER) Pathologist [facility] SED RATE BY MODIFIED WESTERGREN 2 < OR = 20 mm/h [facility] [place] Blood BLOOD SPECIMEN / Unknown 08/14/2024 3:26 PM HIDE SALTER 08/14/2024 3:26 PM HIDE SALTER Tamera Chris DO HEMATOLOGY Final Result [employer] [facility] [address] [place] [address], [place] [phone] [facility] [address] [place] [address] * ANTINUCLEAR ANTIBODY BY IFA (08/14/2024 3:26 PM HIDE SALTER) EMIR SCREEN, IFA NEGATIVE NEGATIVE Ques [facility] [place] Comment: EMIR IFA is a first line screen for detecting the presence of up to approximately 150 autoantibodies in various autoimmune diseases. A negative EMIR IFA result suggests an EMIR-associated autoimmune disease is not present at this time, but is not definitive. If there is high clinical suspicion for Sjogren's syndrome, testing for anti-SS-A/Ro antibody should be considered. Anti-Regla-1 antibody should be considered for clinically suspected inflammatory myopathies. AC-0: Negative International Consensus on EMIR Patterns (https://doi.org/10.1515/fvoe-9467-9250) For additional information, please refer to http://ProPublica.JagTag/faq/HYO331 (This link is being provided for informational/ educational purposes only.) Blood BLOOD SPECIMEN / Unknown 08/14/2024 3:26 PM HIDE SALTER 08/14/2024 3:26 PM HIDE SALTER [facility] Reta Chris CHEMISTRY Final Result [employer] [facility] [address] [place] [address], [facility] [employer] [facility] [address] * VITAMIN D 25 (DEFICIENCY) (08/14/2024 3:26 PM HIDE SALTER) VITAMIN D,25-OH,TOTAL,IA 31 30 - 100 ng/mL [facility] [place] Comment: Vitamin D Status 25-OH Vitamin D: Deficiency: <20 ng/mL Insufficiency: 20 - 29 ng/mL Optimal: > or = 30 ng/mL For 25-OH Vitamin D testing on patients on D2-supplementation and patients for whom quantitation of D2 and D3 fractions is required, the QuestAssureD(TM) 25-OH VIT D, (D2,D3), LC/MS/MS is recommended: order code [id number] (patients >2yrs). See Note 1 Note 1 For additional information, please refer to http://education.JagTag/faq/RVH283 (This link is being provided for informational/ educational purposes only.) Blood BLOOD SPECIMEN / Unknown 08/14/2024 3:26 PM HIDE SALTER 08/14/2024 3:26 PM HIDE SALTER Tamera Chris DO SEND OUTS Final Result Performing Organization Address [facility]/ZIP Co de Phone Number [facility] [address] [place] [address], [place] [phone] [facility] [address] [place] [address] * RA QUANTITATIVE (08/14/2024 3:26 PM HIDE SALTER) RHEUMATOID FACTOR <10 <14 IU/mL [facility] [place] Blood BLOOD SPECIMEN / Unknown 08/14/2024 3:26 PM HIDE SALTER 08/14/2024 3:26 PM HIDE SALTER Tamera Chris DO SEND OUTS Final Result Performing Organization Address [facility] de Phone Number [facility] [address] [place] [address], [place] [phone] [facility] [address] [place] [address] * C-REACTIVE PROTEIN (08/09/2024 5:03 PM HIDE SALTER) C-REACTIVE PROTEIN <3.0 <8.0 mg/L [facility] [place] Blood BLOOD SPECIMEN / Unknown 08/09/2024 5:03 PM HIDE SALTER 08/09/2024 5:03 PM HIDE SALTER Jeffrey Jeronimo MD CHEMISTRY Final Re sult Performing Organization Address [facility]/ZIP Co de Phone Number [facility] [address] [place] [address], [place] [phone] [facility] [address] [place] [address] * (ABNORMAL) CBC AND DIFFERENTIAL (08/09/2024 5:03 PM HIDE SALTER) [facility] WHITE BLOOD CELL COUNT 4.7 3.8 - 10.8 Thousand/u L [facility] RED BLOOD CELL COUNT 5.59 4.20 - 5.80 Million/uL [facility] HEMOGLOBIN 17.3(H) 13.2 - 17.1 g/dL [facility] HEMATOCRIT 51.6(H) 38.5 - 50.0 % [facility] MCV 92.3 80.0 - 100.0 fL [facility] MCH 30.9 27.0 - 33.0 pg [facility] MCHC 33.5 32.0 - 36.0 g/dL [facility] Comment: For adults, a slight decrease in the calculated MCHC value (in the range of 30 to 32 g/dL) is most likely not clinically significant; however, it should be interpreted with caution in correlation with other red cell parameters and the patient's clinical condition. RDW 12.8 11.0 - 15.0 % [facility] PLATELET COUNT 226 140 - 400 Thousand/u L [facility] MPV 11.4 7.5 - 12.5 fL [facility] ABSOLUTE NEUTROPHILS 2,886 1,500 - 7,800 cells/uL [facility] ABSOLUTE LYMPHOCYTES 1,241 850 - 3,900 cells/uL [facility] ABSOLUTE MONOCYTES 456 200 - 950 cells/uL [facility] ABSOLUTE EOSINOPHILS 89 15 - 500 cells/uL [facility] ABSOLUTE BASOPHILS 28 0 - 200 cells/uL [facility] NEUTROPHILS 61.4 % [facility] LYMPHOCYTES 26.4 % [facility] MONOCYTES 9.7 % [facility] EOSINOPHILS 1.9 % [facility] BASOPHILS 0.6 % [facility] Blood BLOOD SPECIMEN / Unknown 08/09/2024 5:03 PM HIDE SALTER 08/09/2024 5:03 PM HIDE SALTER Jeffrey Jeronimo MD HEMATOLOGY Final Re sult [employer] [facility] [address] [place] [address], [place] [phone] [facility] [address] [place] [address] * CK TOTAL (08/09/2024 5:03 PM HIDE SALTER) Pathologist [facility] CREATINE KINASE, TOTAL 64 44 - 196 U/L [facility] Blood BLOOD SPECIMEN / Unknown 08/09/2024 5:03 PM HIDE SALTER 08/09/2024 5:03 PM HIDE SALTER Jeffrey Jeronimo MD CHEMISTRY Final Re sult Performing Organization Address [facility]/ZIP Co de Phone Number [employer] [facility] [address] [place] [address], [place] [phone] [facility] [address] [place] [address] * (ABNORMAL) COMP METABOLIC PANEL (08/09/2024 5:03 PM HIDE SALTER) Pathologist [facility] GLUCOSE 78 65 - 99 mg/dL [facility] Comment: Fasting reference interval UREA NITROGEN (BUN) 21 7 - 25 mg/dL [facility] CREATININE 1.34 0.70 - 1.35 mg/dL [facility] EGFR 58(L) > OR = 60 mL/min/1. 73m2 [facility] BUN/CREATININE RATIO SEE NOTE: 6 - 22 (calc) [facility] Comment: Not Reported: BUN and Creatinine are within reference range. SODIUM 140 135 - 146 mmol/L [facility] POTASSIUM 5.1 3.5 - 5.3 mmol/L [facility] CHLORIDE 106 98 - 110 mmol/L [facility] CARBON DIOXIDE 28 20 - 32 mmol/L [facility] CALCIUM 9.8 8.6 - 10.3 mg/dL [facility] PROTEIN, TOTAL 7.1 6.1 - 8.1 g/dL [facility] ALBUMIN 4.5 3.6 - 5.1 g/dL [facility] GLOBULIN 2.6 1.9 - 3.7 g/dL (calc) [facility] ALBUMIN/GLOBULIN RATIO 1.7 1.0 - 2.5 (calc) [facility] BILIRUBIN, TOTAL 0.5 0.2 - 1.2 mg/dL [facility] ALKALINE PHOSPHATASE 59 35 - 144 U/L [facility] AST 16 10 - 35 U/L [facility] ALT 22 9 - 46 U/L [facility] Blood BLOOD SPECIMEN / Unknown 08/09/2024 5:03 PM HIDE SALTER 08/09/2024 5:03 PM HIDE SALTER Jeffrey Jeronimo MD CHEMISTRY Final Re sult [facility] [address] [place] [address], [facility] [address] [place] [address] * (ABNORMAL) LIPID PANEL W REFLEX MEASURED LDL (08/19/2023 9:33 AM HIDE SALTER) CHOLESTEROL,TOTAL 128 100 - 199 mg/dL 08/19/2023 6:09 PM [facility] Comment: Cholesterol, Total Reference Ranges Desirable <200 mg/dL Borderline 200-239 mg/dL High >=240 mg/dL TRIGLYCERIDES 107 <150 mg/dL 08/19/2023 6:09 PM [facility] HDL CHOLESTEROL 37(L) >40 mg/dL 6:09 PM [facility] NON-HDL CHOLESTEROL 91 <145 mg/dl 08/19/2023 6:09 PM HIDE SALTER [facility] CHOL/HDL RATIO 3.46 <4.50 08/19/2023 6:09 PM HIDE SALTER [facility] LDL CHOLESTEROL 70 <=130 mg/dL 08/19/2023 6:09 PM HIDE SALTER [facility] VLDL CHOLESTEROL 21 <=30 mg/dL 08/19/2023 6:09 PM HIDE SALTER [facility] PROVIDER ORDERED STATUS RANDOM 08/19/2023 6:09 PM HIDE SALTER [facility] Blood BLOOD SPECIMEN / Unknown Venipuncture / Unknown 08/19/2023 9:33 AM HIDE SALTER 08/19/2023 9:35 AM HIDE SALTER us Renay Pepe HAND BUTTON SPLITTER CHEMISTRY Final Re sult [facility] [address] [place] [address], [place] * CT ABDOMEN PELVIS COLONOGRAPHY SCREENING WO [10492.0] (05/06/2022 3:35 PM CDT) Anatomical Region Laterality Modality Abdomen Computed Tomogra phy 05/11/2022 11:4 0 AM CDT Impressions 05/11/2022 11:40 AM CDT 1. No polyps are visualized. 2. The exam is limited due to a retained fluid lack of distention and retained stool. 3. Colon is markedly redundant. 4. Scarring lower pole left kidney tiny probable Bosniak type 2 cyst follow-up renal ultrasound could be considered for correlation. C-RADS: CT Colonography C-RADS Category: C0, E2 Colonic classification C0 : inadequate study C1 : normal colon / benign lesion - routine screening every 5 to 10 years to be continued C2 : indeterminate polyp - surveillance or colonoscopy 6 - 9 mm in diameter LESS THAN 3 in number C3 : possibly advanced adenoma - follow up colonoscopy GREATER THAN 10 mm in diameter GREATER THAN 3 in number with each 6 - 9 mm C4 : colonic mass likely malignant - urgent surgical referral Has associated luminal narrowing Has extra colonic extension Extra-colonic classification E0 : limited exam E1 : normal exam or normal variant E2 : clinically unimportant finding (e.g., simple liver cyst, vertebral hemangioma) -no work up required E3 : likely unimportant or incompletely characterized finding (e.g., minimally complex renal cyst) -referral depends on local center. E4 : potentially important finding (e.g., solid renal mass) - communicate to referring physician Please note that all CT scans at this facility use dose modulation, iterative reconstruction, and/or weight-based dosing when appropriate to reduce radiation dose to as low as reasonably achievable. Dictated by Colton Mix MD @ 05/11/2022 11:40:33 AM (Electronically Signed) Narrative 05/11/2022 11:40 AM CDT For Patients: As a result of the Cures Act, medical imaging exams and procedure reports are released immediately into your electronic medical record. You may view this report before your referring provider. If you have questions, please contact your health care provider. INDICATION: Colon cancer screen. Family history of colon carcinoma TECHNIQUE: CT SCAN OF THE ABDOMEN AND PELVIS CT COLONOSCOPY PROTOCOL Cathartic prep. No IV contrast. Supine and prone image volumes were obtained. Carbon dioxide insufflation was performed through a rectal catheter. Images were reviewed in 2D, and sagittal and coronal reconstructions were performed. FINDINGS: SCAN QUALITY: Suboptimal distension. Colon is markedly redundant and has a large amount of retained fluid and there is retained stool. POLYPS: No significant colonic polyps. EXTRACOLONIC STRUCTURES: The liver spleen pancreas and adrenal glands are unremarkable. Lung bases are clear. No hydronephrosis. Small cysts are present with cortical scars in the lower pole left kidney. Hyperattenuating small cyst in the lower pole less than 1 centimeter image 95. No suspicious lymph node enlargement. The prostate gland is enlarged. The bladder is unremarkable. Disc degeneration in the spine. No suspicious osseous lesions. Rectal catheter for insufflation. Procedure Note Colton Mix MD - 05/11/2022 For Patients: As a result of the Cures Act, medical imagingexams and procedure reports are released immediately into your electronicmedical record. You may view this report before your referring provider.If you have questions, please contact your health care provider. INDICATION: Colon cancer screen. Family history of colon carcinoma TECHNIQUE: CT SCAN OF THE ABDOMEN AND PELVIS CT COLONOSCOPY PROTOCOL Cathartic prep. No IV contrast. Supine and prone image volumes were obtained. Carbon dioxide insufflation was performed through a rectal catheter. Images were reviewed in 2D, and sagittal and coronal reconstructions wereperformed. FINDINGS: SCAN QUALITY: Suboptimal distension. Colon is markedly redundant and has a large amountof retained fluid and there is retained stool. POLYPS: No significant colonic polyps. EXTRACOLONIC STRUCTURES: The liver spleen pancreas and adrenal glands are unremarkable. Lung bases are clear. No hydronephrosis. Small cysts are present with cortical scars in thelower pole left kidney. Hyperattenuating small cyst in the lower pole lessthan 1 centimeter image 95. No suspicious lymph node enlargement. The prostate gland is enlarged. The bladder is unremarkable. Disc degeneration in the spine. No suspicious osseous lesions. Rectalcatheter for insufflation. IMPRESSION: 1. No polyps are visualized. 2. The exam is limited due to a retained fluid lack of distention andretained stool. 3. Colon is markedly redundant. 4. Scarring lower pole left kidney tiny probable Bosniak type 2 cystfollow-up renal ultrasound could be considered for correlation. C-RADS: CT Colonography C-RADS Category: C0, E2 Colonic classification C0 : inadequate study C1 : normal colon / benign lesion - routine screening every 5 to 10 yearsto be continued C2 : indeterminate polyp - surveillance or colonoscopy 6 - 9 mm in diameter LESS THAN 3 in number C3 : possibly advanced adenoma - follow up colonoscopy GREATER THAN 10 mm in diameter GREATER THAN 3 in number with each 6 - 9 mm C4 : colonic mass likely malignant - urgent surgical referral Has associated luminal narrowing Has extra colonic extension Extra-colonic classification E0 : limited exam E1 : normal exam or normal variant E2 : clinically unimportant finding (e.g., simple liver cyst, vertebralhemangioma) -no work up required E3 : likely unimportant or incompletely characterized finding (e.g.,minimally complex renal cyst) -referral depends on local center. E4 : potentially important finding (e.g., solid renal mass) - communicateto referring physician Please note that all CT scans at this facility use dose modulation,iterative reconstruction, and/or weight-based dosing when appropriate toreduce radiation dose to as low as reasonably achievable. Dictated by Colton Mix MD @ 05/11/2022 11:40:33 AM (Electronically Signed) us Jeffrey Jeronimo MD CT Final Re sult * OCCULT BLOOD IFOBT STOOL (08/25/2016 3:36 PM HIDE SALTER) STOOL BLOOD ,IFOBT Negative Negative 08/27/2016 9:13 AM HIDE SALTER [facility] [place] Stool STOOL SPECIMEN / Unknown Non-Blood / Unknown 08/25/2016 3:36 PM HIDE SALTER 08/25/2016 3:36 PM HIDE SALTER us Jeffrey Jeronimo MD LABORATORY Final Re sult [facility] [place] [address] [place] [address], from Last 3 Months or Most Recently Relevant to Health Maintenance Insurance [facility] MR/MSHO MEDICARE PART A HB ONLY [facility] MR HB ONLY Care Teams Steel Rod Buster Relationship Specialty Start Date End Date Votel, Jeffrey Mcgrath MD [address] [place], [place] [address] PCP - General Family Practice 05/27/15
--- OUTSIDE RECORDS SUMMARY | 2024-09-25 16:49 | XMS_ITS | Encounter Summary ---
Author Organization [place] Address [address] [place] [address]. [place] [address] Care Team Providers Care Facing Baster Jumpbasting Name Role Phone Phani Jeffrey El Primary Care Provider [phone] Reason for Visit * Reason Onset Date Comments MH/CD Inpatient 04/18/2024 Encounter Details Date Type Department Care Team ([facility] Contact Info) Description 04/18/2024 Telephone [facility] Behavioral Health Intake [address] [place] [phone] Generic, Behavioral Intake, MD MH/CD Inpatient [...] in an abandoned building, in an overnight [place] [facility], or couch-surfing.) Yes 04/13/2024 Are you worried [...] PM CDT R: No appropriate bed at [facility]. Pt remains on the worklist. documented in this encounter Plan of Treatment Not on file documented as of this encounter Visit Diagnoses Not on filedocumented in this encounter Additional Health Concerns Assessment Noted Time PHQ-9 Depression Total Score: 17 03/28/ 024 1:40 PM CDT documented as of this encounter Care Teams Facing Baster Jumpbasting Relationship Specialty Start Date End Date NicteJeffrey iqbal [address] [place] [address] PCP - General Family Medicine 03/19/24 documented as of this encounter
--- OUTSIDE RECORDS SUMMARY | 2024-09-25 16:49 | XMS_ITS | Data Portability ---
Author Organization [place] [facility] [place] [facility], [facility] Address [address] [place] [address] Care Team Providers Care Airline Dispatcher Name Role Phone VOTEL ROLA Primary Care Provider Assessment No assessment recorded. Plan of Treatment Reminders Order Date Submit Date Provider Last Modified By Organization Details Last Modified Time Details Appointments None recorded. Lab None recorded. Referral None recorded. Procedures None recorded. Surgeries None recorded. Imaging None recorded. Medication Orders ceftriaxone 1 gram solution for injection 2020 021 [facility] 1 [id number], [address] [address], [place], [address], 12:28:23 Patient TargetsNo targets recorded. Patient InstructionsNo instructions recorded. Reason for Referral None Reported. Results Created Date Observation Date Name Description Value Unit Range Abnormal Flag Note LastModifiedBy Organization Detail LastModifiedTime 03/17/20 21 03/16/2021 US, prost ate No observ ation record ed. BARCODE Not Available 2020 08:46:33 09/13/19 24 09/13/2023 MRI, prost ate, w/wo contr ast No observ ation record ed. [email or web address] [facility] (Centralized Fax Number) [phone], [place], [address], 09/23/2023 13:02:41 09/13/19 24 09/13/2023 MRI, prost ate, w/wo contr ast No observ ation record ed. [email or web address] [facility], [address], [place], [address], 09/23/2023 13:01:48 Result Notes None recorded. Procedures Surgical History Date Name Laterality Status Provider Name and Address Organization Details Recorded Time 021 Prostate Biopsy Procedure completed Alec Garcia MD [address] [facility],[address], [place], [address], [place] [facility] 03/16/2021 12:52:45 014 Cystourethroscopy completed Not Available [facility] 01/10/2020 20:47:12 008 Prp i/flores init reduc >5 yr completed Not Available [facility] 01/10/2020 20:47:12 998 Knee arthroscopy/surgery completed Not Available [facility] 01/10/2020 20:47:12 Imaging Results Imaging Date Name Status LastModified by Organiz ation Details LastModified Time 03/16/2021 US, prostate completed BARCODE Information not available 03/17/2021 08:46:33 09/13/2023 MRI, prostate, w/wo contrast completed [email or web address] [facility] (Centralized Fax Number) [phone], [place], [address], 09/23/2023 13:02:41 09/13/2023 MRI, prostate, w/wo contrast completed [email or web address] [facility], [address], [place], [address], 09/23/2023 13:01:48 Procedure Notes None recorded. Medical Equipment None Reported. Allergies No known drug allergies Medications Name Sig Start Date Stop Date Status Note LastModified by Organization Details LastModified Time levothyroxi ne 175 mcg tablet TAKE ONE TABLET BY MOUTH ONE TIME DAILY active Not Available Not Available No t Available ciprofloxac in 500 mg tablet TAKE ONE TABLET BY MOUTH TWICE DAILY FOR 5 DAYS active Not Available Not Available No t Available omeprazole 40 mg capsule,del ayed release TAKE ONE CAPSULE BY MOUTH ONE TIME DAILY BEFORE A MEAL. active Not Available Not Available No t Available triamcinolo ne acetonide 0.1 % topical cream APPLY TWICE A DAY TO AFFECTED AREA OF BUTTOCKS FOR UP TO 2 WEEKS AT A TIME , REPEAT NEEDED active Not Available Not Available No t Available ceftriaxone 1 gram solution for injection Take 1 g by injection route. 2020 active Not Available Not Available Not Avai lable amoxicillin 875 mg tablet TAKE ONE TABLET BY MOUTH TWICE DAILY UNTIL GONE 03/16 completed Not Available Not Available Not Available tacrolimus 0.03 % topical ointment APPLY THIN LAYER EXTERNALL Y TO AFFECTED AREA ONCE DAILY (BUTTOCKS ) active Not Available Not Available No t Available omeprazole 20 mg capsule,del ayed release Take 1 capsule by mouth once daily before a meal 03/16 completed Not Available Not Available Not Available mupirocin 2 % topical ointment active Not Available Not Available Not Available lamotrigine 100 mg tablet TAKE ONE TABLET BY MOUTH TWICE DAILY active Not Available Not Available No t Available quetiapine 50 mg tablet TAKE ONE TABLET BY MOUTH EVERY DAY IN THE MORNING. active Not Available Not Available No t Available quetiapine 400 mg tablet TAKE ONE TABLET BY MOUTH ONE TIME DAILY AT BEDTIME active Not Available Not Available No t Available Vitals Date Recorded Body weight Body mass index (BMI) Body height Provider Name and Address Organization Details Last Updated DateTime 03/16/2021 894046.42 g 30.7 kg/m2 195.[address] [facility] 03/16/2021 12:25:41 Social History Question Answer Notes LastModified by Organizat ion Details LastModified Time Tobacco Smoking Status Never Smoker Not Available [facility] 01/10/2020 02:04:27 What Is Your Level Of Alcohol Consumption? None Information not available 03/16/2021 What Is Your Level Of Caffeine Consumption? None Information not available 03/16/2021 Race White Information n ot available 01/10/2020 Ethnicity Not /Lati no Information not available 03/16/2021 Preferred Language Senegalese Information not available 03/16/2021 Recreational Drug Use No Information not available 03/16/2021 Could You Be ? No Information not available 03/16/2021 Marital Status Informati on not available 01/10/2020 What Was The Date Of Your Most Recent Tobacco Screening? 03/16/2021 Information not available 03/16/2021 Are You Sexually Active? No [email or web address] Information not available 03/16/2021 Do You Use Any Illicit Or Recreational Drugs? No Information not available 03/16/2021 Do You Or Have You Ever Used Any Other Forms Of Tobacco Or Nicotine? No [facility] Information not available 03/16/2021 Sex: Unknown Functional Status None recorded. Mental Status None recorded. Family History Relationship Description Onset Age of this Age Resolved Age Notes LastModified by Organization Details LastModified Time Father Family history of malignant neoplasm Liver Not available 03/16 12:23:53 Medical History Condition Response Sexually Transmitted Infection N Diabetes N Bleeding Disorder N Other Y High Blood Pressure N Kidney Stones N High Cholesterol N GERD/Acid Reflux N Heart Disease N Cancer N Lung Disease N Depression N Past Encounters Encounter ID Performer Location Encounter Start Date Encounter Closed Date Diagnosis/Indication Diagnosis SNOMED-CT Code Diagnosis ICD10 Code Diagnosis Note [id number] Alec Garcia MD [facility] [address] [place] [address] 03/16/2021 11:49:08 03/18/2021 11:03:56 Prostate specific antigen above reference range 719927057 R97.20 - Elevated PSA- MRI negative- Now s/p standard template biopsy- Follow up in 1-2 weeks for pathology review Health Concerns Section Related Observation LastModified by Organization Detai ls LastModified Time None Recorded Concern Status LastModified by Organization Details LastModified Time None Recorded Advance Directives Directive None Recorded Payers Encounter Date Sequence Insurance Name Policy Number Policy Wilkinson Covered Member ID Wilkinson Member ID Guarantor Name 03/16/2021 1 [facility] (MEDICARE REPLACEMENT/A DVANTAGE - PPO) [id number] Jamel Meyers [id number] Jamel Meyers Notes Date Note Type Note Provider Name and Address Organization Details Recorded Time 03/16/2021 text/html 65 yoM who follows with me in my [facility] for elevated PSA. Underwent negative MRI. Here for standard template prostate biopsy. Alec Garcia MD [address] [facility],[address], [place], [address], [facility] 03/16/2021 12:54:27
--- OUTSIDE RECORDS SUMMARY | 2024-09-25 16:49 | XMS_ITS | Clinical Summary ---
Author Organization [place] Address [address] [place] [address] Care Team Providers Care Animal Scientist Name Role Phone Jeffrey Jeronimo Primary Care Provider [phone] Allergies No known active allergies Medications * [...] in an abandoned building, in an overnight fpc, or couch-surfing.) Yes 05/05/2024 Are you worried [...] BLOOD ORDERABLES Final Res ult UR LABORATORY [facility] [address] [place] [address] * (ABNORMAL) UA with Microscopic reflex to [...] 05/07/2024 10:30 PM CDT UR LABORATORY Specific [place] Urine 1.013 1.003 - 1.035 05/07/2024 10:30 [...] URINE ORDERABLES Final Res ult UR LABORATORY [facility] [address] [facility] [place] [address] * CBC with platelets and differential (05/07/2024 [...] BLOOD ORDERABLES Final Res ult UR LABORATORY [facility] [address] [facility] [place] [address], [facility] * (ABNORMAL) Lipid panel (04/22/2024 7:57 [...] BLOOD ORDERABLES Final Res ult UR LABORATORY [facility] Lab [address] [facility] [place] [phone] * TSH with free T4 reflex (03/19/2024 8:12 PM CDT) TSH 1.18 0.30 - 4.20 uIU/mL 03/19/2024 8:51 PM CDT LABORATORY Blood STRUCTURE OF RIGHT UPPER LIMB / Unknown Venipuncture / Unknown 03/19/2024 8:12 PM CDT 03/19/2024 8:16 PM CDT us Faustina Middleton APRN [employer]ERCIAL [employer]TURE [employer]SEMBLER LAB - BLOOD ORDERABLES Fi nal Result LABORATORY [facility] [address], [address] [place] [address], [place] [phone] from Last 3 Months or Most Recently Relevant to Health Maintenance Insurance [employer] MEDICARE ADVANTAGE [employer] MEDICARE ADVANTAGE [facility] MEDICARE REPLMT Advance Directives For more information, please contact: [phone] * Full Code (Latest Code Status on [...] patie nt/ legal decision maker Care Teams Animal Scientist Relationship Specialty Start Date End Date Votel, Jeffrey LE: [phone] [address] [place] [address] PCP - General Family Medicine 03/19/24
[2024-09-25 18:07] LABS: TSH With Reflex to FT4* 0.715 uIU/mL (0.270-4.200)
[2024-09-25] MEDS: QUETIAPINE 100 MG TABLET 400 MG PO (22:15)
[2024-09-25 22:19] VITALS: BP 123/86; PULSE 59; RESP 14; TEMP 36.6; O2SAT 99
[2024-09-25 22:52] VITALS: TEMP 36.6
[2024-09-25] MEDS: ACETAMINOPHEN 500 MG TABLET 1000 MG PO (22:52)
[2024-09-26 01:40] VITALS: BP 118/65; PULSE 67; RESP 14; TEMP 36.6; O2SAT 99
[2024-09-26 05:34] VITALS: BP 122/72; PULSE 70; RESP 16; TEMP 36.6; O2SAT 99
--- NOTE | 2024-09-26 07:28 | ED.NURSE ---
Pt is awake, is calm and cooperative. Breakfast tray ordered for pt.
--- NOTE | 2024-09-26 08:07 | ED.NURSE ---
Pt is eating in room, is calm and cooperative at this time.
[2024-09-26 08:27] VITALS: BP 128/83; PULSE 67; RESP 18; TEMP 36.2; O2SAT 99
--- NOTE | 2024-09-26 08:35 | ED.NURSE ---
Pt ate 100% of breakfast meal independently.
--- NOTE | 2024-09-26 08:40 | ED.NURSE ---
Pt is brushing his teeth, and washing his face, independently.
[2024-09-26] MEDS: TAMSULOSIN HCL 0.4 MG CAPSULE PO (09:05)
[2024-09-26] MEDS: QUETIAPINE 100 MG TABLET PO (09:05)
--- NOTE | 2024-09-26 09:49 | ED.NURSE ---
Pt is resting in room, is calm and cooperative at this time.
--- NOTE | 2024-09-26 11:44 | ED.NURSE ---
Pt is calm and cooperative at this time, lunch tray ordered for pt.
--- NOTE | 2024-09-26 11:44 | ED.NURSE ---
Pt sister and brother in law in room.
[2024-09-26] MEDS: DULOXETINE 30 MG CAPSULE DR PO (13:52)
--- NOTE | 2024-09-26 14:28 | ED.NURSE ---
Pt resting in room, is calm an cooperative at this time
[2024-09-26 14:44] VITALS: BP 110/66; PULSE 61; RESP 18; TEMP 37.1; O2SAT 98
--- NOTE | 2024-09-26 16:49 | ED.NURSE ---
Pt is calm and cooperative at this time, is resting in room.
--- NOTE | 2024-09-26 18:23 | ED.NURSE ---
Pt received dinner tray. Pt is calm and cooperative at this time
[2024-09-26] MEDS: QUETIAPINE 100 MG TABLET 400 MG PO (20:59)
[2024-09-26] MEDS: ACETAMINOPHEN 500 MG TABLET 1000 MG PO (21:56)
[2024-09-26 22:39] VITALS: BP 112/69; PULSE 65; RESP 18; TEMP 37.1; O2SAT 98
[2024-09-27 01:01] VITALS: TEMP 37.1
[2024-09-27] MEDS: QUETIAPINE 100 MG TABLET PO (08:30)
[2024-09-27] MEDS: TAMSULOSIN HCL 0.4 MG CAPSULE PO (08:30)
[2024-09-27] MEDS: DULOXETINE 30 MG CAPSULE DR PO (08:30)
[2024-09-27 09:57] VITALS: BP 110/78; PULSE 82; RESP 18; TEMP 37; O2SAT 97
[2024-09-27 10:05] LABS: PCR FLU A Negative PCR FLU A (Negative); PCR FLU B Negative PCR FLU B (Negative); PCR RSV Negative PCR RSV (Negative); SARS PCR* Negative SARS-CoV-2 (Negative)
[2024-09-27 11:54] VITALS: BP 103/76; PULSE 82; RESP 18; TEMP 37
== END 2024-09-27 11:55 | disposition home or self-care (01) ==
PROVIDERS: Emergency Medicine; Emergency Provider Family Medicine; PCP Family Medicine
DX: F32.A Depression, unspecified (principal); Z79.899 Other long term (current) drug therapy
CPT/HCPCS: 36415; 80053; 80306; 81001; 82077; 84443; 85025; 87631; 99283; 99284; A9270

== ENCOUNTER 2024-09-27 11:53 | Outpatient (CLI) | payer MEDICARE, SELFPAY | END 2024-09-27 11:54 | disposition home or self-care (01) | PROVIDERS: PCP Family Medicine; Visit Provider Emergency Medicine | DX: R45.851 Suicidal ideations (principal) | CPT/HCPCS: A0425; A0428 ==

== ENCOUNTER 2025-04-19 09:09 | Outpatient (CLI) | payer MEDICARE, SELFPAY ==
--- NOTE | 2025-04-19 10:21 | P.ANES_ITS ---
Anesthesia Charges Start Date/Time Anesthesia Start Date: 04/19/25 Anesthesia Start Time: 10:06 Stop Date/Time Anesthesia Stop Date: 04/19/25 Anesthesia Stop Time: 10:19 Coding CPT Codes CPT Codes: ANES UPR GI NDSC PX NOS - 66013 ([id number]) P2 - PATIENT W/MILD SYST DISEASE, QK - SECURITY AGENT 2-4 CNCRNT ANES PROC, QX - MOSAICIST SVC W/ MD MED DIRECTION
--- NOTE | 2025-04-19 10:21 | W.ANESCHARGE ---
Anesthesia Charges Start Date/Time Anesthesia Start Date: 04/19/25 Anesthesia Start Time: 10:06 Stop Date/Time Anesthesia Stop Date: 04/19/25 Anesthesia Stop Time: 10:19 Coding CPT Codes CPT Codes: ANES UPR GI NDSC PX NOS - 93153 ([id number]) P2 - PATIENT W/MILD SYST DISEASE, QK - OIL FIELD OPERATOR 2-4 CNCRNT ANES PROC, QX - RIVET CATCHER SVC W/ MD MED DIRECTION
--- NOTE | 2025-04-19 10:23 | P.ANES_ITS ---
Anesthesia Charges Start Date/Time Anesthesia Start Date: 04/19/25 Anesthesia Start Time: 10:06 Stop Date/Time Anesthesia Stop Date: 04/19/25 Anesthesia Stop Time: 10:19 Coding CPT Codes CPT Codes: ANES UPR GI NDSC PX NOS - 16536 ([id number]) P2 - PATIENT W/MILD SYST DISEASE, QK - PATTERN SETTER 2-4 CNCRNT ANES PROC, QX - SEO TEAM LEAD SVC W/ MD MED DIRECTION
--- NOTE | 2025-04-19 10:23 | W.ANESCHARGE ---
Anesthesia Charges Start Date/Time Anesthesia Start Date: 04/19/25 Anesthesia Start Time: 10:06 Stop Date/Time Anesthesia Stop Date: 04/19/25 Anesthesia Stop Time: 10:19 Coding CPT Codes CPT Codes: ANES UPR GI NDSC PX NOS - 34843 ([id number]) P2 - PATIENT W/MILD SYST DISEASE, QK - PHYSICIST CRYOGENICS 2-4 CNCRNT ANES PROC, QX - RESERVATIONS SALES SUPERVISOR SVC W/ MD MED DIRECTION
== END 2025-04-19 09:10 | disposition home or self-care (01) ==
PROVIDERS: PCP Family Medicine; Visit Provider Internal Medicine Gastroenterology
DX: K90.0 Celiac disease (principal); R10.13 Epigastric pain; R19.7 Diarrhea, unspecified; K31.89 Other diseases of stomach and duodenum; R76.8 Other specified abnormal immunological findings in serum
CPT/HCPCS: 00731; 43239; 88305; J2405; J2704